=== PATIENT | female | born 1950 | race Caucasian/White ===

== ENCOUNTER 2018-09-26 09:45 | Inpatient (IN) | payer OTHER ==
[2018-09-26] VITALS (11 sets, daily range): BP systolic 125–184; BP diastolic 61–80
[~2018-09-26] VITALS: Ht 170.2 cm; Wt 107.5 kg
[2018-09-26] MEDS ORDERED: IV NORMAL SALINE 1000ML BAG 1,000 ML IV SCH (09:52)
[2018-09-26] MEDS ORDERED: MORPHINE SULFATE 4 MG/ML VIAL. IV ONE (10:00)
[2018-09-26 10:03] LABS: BASO % 1 % (0-3); EOS % 1 % (0-3); HEMATOCRIT 39.9 % (36.0-47.0); HEMOGLOBIN 13.6 g/dL (12.0-15.5); LYMPH # 1.6 x10^3/uL (1.0-4.8); LYMPH % 36 % (24-48); MEAN CORPUSCULAR HEMOGLOBIN 30 pg (25-35); MEAN CORPUSCULAR HGB CONC 34 g/dL (31-37); MEAN CORPUSCULAR VOLUME 89 fL (79-100); MONO # 0.3 x10^3/uL (0.0-1.1); MONO % 7 % (0-9); NEUT # 2.5 x10^3uL (1.8-7.7); NEUT % 56 % (31-73); PLATELET COUNT 168 x10^3/uL (140-400); RED BLOOD COUNT 4.47 x10^6/uL (3.50-5.40); RED CELL DISTRIBUTION WIDTH 15.2 % (11.5-14.5); WHITE BLOOD COUNT 4.4 x10^3/uL (4.0-11.0)
--- NOTE | 2018-09-26 10:05 | PHYS DOC ---
Past Medical History Past Medical History: CAD, COPD, High Cholesterol, Hypertension Additional Past Medical Histor: DVT Past Surgical History: Coronary Bypass Surgery Smoking: Quit Greater Than 1 Year Adult General Chief Complaint Chief Complaint: MECHANICAL FALL HPI HPI Patient is a 68-year-old female who presents to the emergency department via EMS after mechanical fall. She states she was walking down an incline surface, to help her dog, when she lost her balance, and fell to the ground injuring her left knee. She has had a TKA on the left side in the past, in [facility]. She denies any dizziness or lightheadedness preceding the fall. She denies any other injuries or painful areas, denies any headache or head injury, neck pain or back pain, numbness or weakness. Any movement of her left leg and knee worsens her pain. There are no alleviating factors to her symptoms. She was given 200 Micrograms of fentanyl by EMS prior to arrival. Review of Systems Review of Systems Constitutional: Denies fever or chills [] Eyes: Denies change in visual acuity, redness, or eye pain [] HENT: Denies nasal congestion or sore throat [] Respiratory: Denies cough or shortness of breath [] Cardiovascular: The patient denies any shortness of breath, chest pain, palpitations, or orthopnea [] GI: Denies abdominal pain, nausea, vomiting, bloody stools or diarrhea [] : Denies dysuria or hematuria [] Musculoskeletal: Denies back pain or joint pain, except as noted in the history of present illness [] Integument: Denies rash or skin lesions [] Neurologic: Denies headache, focal weakness or sensory changes [] All other systems were reviewed and found to be within normal limits, except as documented in this note. Current Medications Current Medications Current Medications Medications (Trade) Dose Ordered Sig/Danielle Start Time Stop Time Status Last Admin Dose Admin Hydromorphone HCl (Dilaudid) 2 mg STK-MED ONCE 09/26/18 10:33 09/26/18 10:34 DC Morphine Sulfate (Morphine Sulfate) 4 mg 1X ONCE 09/26/18 10:00 09/26/18 10:01 DC 09/26/18 10:03 4 MG Sodium Chloride 1,000 ml @ 100 mls/hr Q10H 09/26/18 09:52 09/26/18 19:51 09/26/18 10:18 100 MLS/HR Allergies Allergies Allergies Coded Allergies Type Severity Reaction Last Updated Verified No Known Drug Allergies 09/26/18 No Physical Exam Physical Exam PHYSICAL EXAM: CONSTITUTIONAL: Well developed, well nourished HEAD: normocephalic, atraumatic EENT: PERRL, EOMI. Conjunctivae normal color, sclerae non-icteric; moist mucous membranes. NECK: Supple, non-tender; no meningismus.There is full, painless range of motion of the cervical spine, without any focal bony midline tenderness to palpation. LUNGS: Lungs CTA, breathing even and unlabored. Normal air movement. HEART: Regular rate and rhythm, no murmur CHEST: No deformity; non-tender ABDOMEN: The abdomen is soft, and non-tender, no masses or bruits. EXTREM: There is tenderness to palpation of the left knee area, mostly superior to the knee joint, in the distal femur area. There is soft tissue swelling present as well. There is some shortening and slight lateral rotation of the distal leg relative to the right. There is no tenderness to palpation of the knee joint itself or distally, to the lower leg, ankle, or foot. There is a strong distal pulse, sensation and motor function is normal. The mid and proximal femur are also nontender, the hip is nontender and the pelvis is nontender. The remainder the extremities are atraumatic, with Normal ROM; no deformity, no calf tenderness. Normal pulses palpable in all extremities. There is no pedal edema. SKIN: No rash; no diaphoresis NEURO: Alert; normal speech and cognition; CN's grossly intact; strength grossly intact without focal deficit. BACK: No CVA TTP. Current Patient Data Vital Signs Vital Signs Date Time Temp Pulse Resp B/P (MAP) Pulse Ox O2 Delivery O2 Flow Rate FiO2 09/26/18 10:49 10 100 Room Air 09/26/18 10:12 60 09/26/18 09:45 98.2 168/72 (104) 98.2 Lab Values Laboratory Tests Test 09/26/18 09:50 White Blood Count 4.4 x10^3/uL (4.0-11.0) Red Blood Count 4.47 x10^6/uL (3.50-5.40) Hemoglobin 13.6 g/dL (12.0-15.5) Hematocrit 39.9 % (36.0-47.0) Mean Corpuscular Volume 89 fL (79-100) Mean Corpuscular Hemoglobin 30 pg (25-35) Mean Corpuscular Hemoglobin Concent 34 g/dL (31-37) Red Cell Distribution Width 15.2 % (11.5-14.5) H Platelet Count 168 x10^3/uL (140-400) Neutrophils (%) (Auto) 56 % (31-73) Lymphocytes (%) (Auto) 36 % (24-48) Monocytes (%) (Auto) 7 % (0-9) Eosinophils (%) (Auto) 1 % (0-3) Basophils (%) (Auto) 1 % (0-3) Neutrophils # (Auto) 2.5 x10^3uL (1.8-7.7) Lymphocytes # (Auto) 1.6 x10^3/uL (1.0-4.8) Monocytes # (Auto) 0.3 x10^3/uL (0.0-1.1) Eosinophils # (Auto) 0.0 x10^3/uL (0.0-0.7) Basophils # (Auto) 0.0 x10^3/uL (0.0-0.2) Prothrombin Time 24.7 SEC (11.7-14.0) H Prothrombin Time INR 2.3 (0.8-1.1) H Sodium Level 144 mmol/L (136-145) Potassium Level 3.4 mmol/L (3.5-5.1) L Chloride Level 104 mmol/L (98-107) Carbon Dioxide Level 29 mmol/L (21-32) Anion Gap 11 (6-14) Blood Urea Nitrogen 21 mg/dL (7-20) H Creatinine 1.2 mg/dL (0.6-1.0) H Estimated GFR (Cockcroft-Gault) 44.8 Glucose Level 134 mg/dL (70-99) H Calcium Level 9.0 mg/dL (8.5-10.1) Laboratory Tests 09/26/18 09:50 Laboratory Tests 09/26/18 09:50 EKG EKG [Normal sinus rhythm with a normal rate, normal axis, normal intervals, there a re no acute ischemic ST/T changes.] Radiology/Procedures Radiology/Procedures PROCEDURE: PORTABLE CHEST 1V EXAM: One view DATE: 09/26/2018 9:52 AM INDICATION: Fall, injury COMPARISON: No Prior FINDINGS/ IMPRESSION: Changes of cardiothoracic surgery are seen. The heart is not enlarged. Mediastinal and hilar contours are normal accounting for portable supine technique. No focal parenchymal airspace opacity. No pleural effusion or pneumothorax. []PROCEDURE: KNEE LEFT 2V EXAM: AP and lateral views of the left femur DATE: 09/26/2018 12:00 AM INDICATION: Fall, injury COMPARISON: No Prior FINDINGS/ IMPRESSION: 1. Changes of left total knee arthroplasty are seen. 2. Comminuted periprosthetic distal femoral fracture is seen with full shaft width lateral and dorsal displacement of the distal principal fragment with approximately 5-6 cm overriding of the principal fragments. Fracture is in apex anterior angulation. Course & Med Decision Making Course & Med Decision Making Pertinent Labs and Imaging studies reviewed. (See chart for details) []11:20 AM: I spoke with Dr. Jorgensen, orthopedics, who will see the patient and plan operative intervention, today if able. The patient will be given FFP for warfarin reversal, will not be given vitamin K as she will likely need posto perative anticoagulation. I also spoke with Dr. Brown, the hospitalist, who will admit the patient. The patient's leg will be stabilized with a splinter knee immobilizer. Dragon Disclaimer Dragon Disclaimer This electronic medical record was generated, in whole or in part, using a voice recognition dictation system. Departure Departure Impression: Primary Impression: Periprosthetic fracture around internal prosthetic knee joint Additional Impression: Anticoagulated on Coumadin Disposition: ADMITTED INPATIENT [facility] Condition: STABLE Problem Qualifiers BINH BROWN MD Sep 26, 2018 10:05
[2018-09-26 10:17] LABS: CREATININE 1.2 mg/dL (0.6-1.0); GFR 44.8; POTASSIUM 3.4 mmol/L (3.5-5.1)
[2018-09-26 10:22] LABS: PROTHROMBIN TIME PATIENT 24.7 SEC (11.7-14.0)
[2018-09-26] MEDS ORDERED: HYDROmorphone 2 MG/ML VIAL ONE (10:33)
[2018-09-26] MEDS ORDERED: HYDROmorphone 2 MG/ML VIAL IV ONE (10:45)
--- NOTE | 2018-09-26 10:58 | RAD ---
EXAM: AP and lateral views of the left femur DATE: 09/26/2018 12:00 AM INDICATION: Fall, injury COMPARISON: No Prior FINDINGS/ IMPRESSION: 1. Changes of left total knee arthroplasty are seen. 2. Comminuted periprosthetic distal femoral fracture is seen with full shaft width lateral and dorsal displacement of the distal principal fragment with approximately 5-6 cm overriding of the principal fragments. Fracture is in apex anterior angulation. Electronically signed by: Canelo Shukla MD (09/26/2018 10:55 AM) [id number]
--- NOTE | 2018-09-26 10:59 | RAD ---
EXAM: One view DATE: 09/26/2018 9:52 AM INDICATION: Fall, injury COMPARISON: No Prior FINDINGS/ IMPRESSION: Changes of cardiothoracic surgery are seen. The heart is not enlarged. Mediastinal and hilar contours are normal accounting for portable supine technique. No focal parenchymal airspace opacity. No pleural effusion or pneumothorax. Electronically signed by: Canelo Shukla MD (09/26/2018 10:56 AM) [id number]
--- NOTE | 2018-09-26 11:25 | PDOC1 ---
History and Physical Date of Admission Date of Admission DATE: 09/26/18 TIME: 11:25 Identification/Chief Complaint Chief Complaint Fall Source Source: Patient History of Present Illness History of Present Illness Ms Sales is a 68-year-old female w/ PMHx CAD s/p CABG 2006, CAS on CPAP, COPD, HLD, HTN, DVT on warfarin who presents to the emergency department via EMS after mechanical fall. She states she was walking down an incline surface, to help her dog, when she lost her balance, and fell to the ground injuring her left knee. She has had a TKA on the left side in the past, in [facility]. She denies any dizziness or lightheadedness preceding the fall. She denies any other injuries or painful areas, denies any headache or head injury, neck pain or back pain, numbness or weakness. Any movement of her left leg and knee worsens her pain. There are no alleviating factors to her symptoms. She was given 200 Micrograms of fentanyl by EMS prior to arrival. In ED found with comminuted periprosthetic distal femoral fracture, orthopedic surgery contacted. Admitted for further care Past Medical History Cardiovascular: CAD, HTN, Hyperlipidemia Pulmonary: COPD GI: No pertinent hx Heme/Onc: No pertinent hx Hepatobiliary: No pertinent hx Psych: No pertinent hx Rheumatologic: No pertinent hx Infectious disease: No pertinent hx ENT: No pertinent hx Renal/: No pertinent hx Endocrine: No pertinent hx Dermatology: No pertinent hx Past Surgical History Past Surgical History: Appendectomy, Cholecystectomy, CABG, Total knee replacement, Tonsillectomy, Hysterectomy Family History Family History: Heart Disease, High Cholestrol, Hypertension Social History Smoke: <1 pack per day ALCOHOL: rare Drugs: None Current Problem List Problem List Problems Medical Problems: (1) Anticoagulated on Coumadin Status: Acute (2) Periprosthetic fracture around internal prosthetic knee joint Status: Acute Current Medications Current Medications Current Medications Morphine Sulfate (Morphine Sulfate) 4 mg 1X ONCE IV Last administered on 09/26/18at 10:03; Start 09/26/18 at 10:00; Stop 09/26/18 at 10:01; Status DC Sodium Chloride 1,000 ml @ 100 mls/hr Q10H IV Last administered on 09/26/18at 10:18; Start 09/26/18 at 09:52; Stop 6/13/19 at 19:51 Hydromorphone HCl (Dilaudid) 1 mg 1X ONCE IV Last administered on 09/26/18at 10:49; Start 09/26/18 at 10:45; Stop 09/26/18 at 10:46; Status DC Hydromorphone HCl (Dilaudid) 2 mg STK-MED ONCE .ROUTE ; Start 09/26/18 at 10:33; Stop 09/26/18 at 10:34; Status DC Allergies Allergies: Coded Allergies: No Known Drug Allergies (Unverified , 09/26/18) ROS General: YES: Fatigue, Malaise; No: Chills, Night Sweats, Appetite, Other PSYCHOLOGICAL ROS: No: Anxiety, Behavioral Disorder, Concentration difficultie, Decreased libido, Depression, Disorientation, Hallucinations, Hostility, Irritablity, Memory difficulties, Mood Swings, Obsessive thoughts, Physical abuse, Sexual abuse, Sleep disturbances, Suicidal ideation, Other Eyes: No Blurry vision, No Decreased vision, No Double vision, No Dry eyes, No Excessive tearing, No Eye Pain, No Itchy Eyes, No Loss of vision, No Photophobia, No Scotomata, No Uses contacts, No Uses glasses, No Other HEENT: No: Heacaches, Visual Changes, Hearing change, Nasal congestion, Nasal d ischarge, Oral lesions, Sinus pain, Sore Throat, Epistaxis, Sneezing, Snoring, Tinnitus, Vertigo, Vocal changes, Other ALLERGY AND IMMUNOLOGY: No: Hives, Insect Bite Sensitivity, Itchy/Watery Eyes, Nasal Congestion, Post Nasal Drip, Seasonal Allergies, Other Hematological and Lymphatic: No: Bleeding Problems, Blood Clots, Blood Transfusions, Brusing, Night Sweats, Pallor, Swollen Lymph Nodes, Other ENDOCRINE: No: Breast Changes, Galactorrhea, Hair Pattern Changes, Hot Flashes, Malaise/lethargy, Mood Swings, Palpitations, Polydipsia/polyuria, Skin Changes, Temperature Intolerance, Unexpected Weight Changes, Other Breast: No New/Changing Breast Lumps, No Nipple changes, No Nipple discharge, No Other Respiratory: No: Cough, Hemoptysis, Orthopnea, Pleuritic Pain, Shortness of wolfgang ath, SOB with excertion, Sputum Changes, Stridor, Tachypnea, Wheezing, Other Cardiovascular: No Chest Pain, No Palpitations, No Orthopnea, No Paroxysmal Noc. Dyspnea, No Edema, No Lt Headedness, No Other Gastrointestinal: No Nausea, No Vomiting, No Abdominal Pain, No Diarrhea, No Constipation, No Melena, No Hematochezia, No Other Genitourinary: No Dysuria, No Frequency, No Incontinence, No Hematuria, No Retention, No Discharge, No Urgency, No Pain, No Flank Pain, No Other, No , No , No , No , No , No , No Musculoskeletal: Yes Gait Disturbance, Yes Joint Pain; No Joint Stiffness, No Joint Swelling, No Muscle Pain, No Muscular Weakness, No Pain In:, No Swelling In:, No Other Neurological: No Behavorial Changes, No Bowel/Bladder ControlChng, No Confusion, No Dizziness, No Gait Disturbance, No Headaches, No Impaired Coord/balance, No Memory Loss, No Numbness/Tingling, No Seizures, No Speech Problems, No Tremors, No Visual Changes, No Weakness, No Other Skin: No Dry Skin, No Eczema, No Hair Changes, No Lumps, No Mole Changes, No Mottling, No Nail Changes, No Pruritus, No Rash, No Skin Lesion Changes, No Other, No Acne Vitals Vitals Vital Signs Date Time Temp Pulse Resp B/P (MAP) Pulse Ox O2 Delivery O2 Flow Rate FiO2 09/26/18 10:49 10 100 Room Air 09/26/18 10:12 60 09/26/18 09:45 98.2 168/72 (104) 98.2 Labs Labs Laboratory Tests Test 09/26/18 09:50 White Blood Count 4.4 x10^3/uL (4.0-11.0) Red Blood Count 4.47 x10^6/uL (3.50-5.40) Hemoglobin 13.6 g/dL (12.0-15.5) Hematocrit 39.9 % (36.0-47.0) Mean Corpuscular Volume 89 fL (79-100) Mean Corpuscular Hemoglobin 30 pg (25-35) Mean Corpuscular Hemoglobin Concent 34 g/dL (31-37) Red Cell Distribution Width 15.2 % (11.5-14.5) Platelet Count 168 x10^3/uL (140-400) Neutrophils (%) (Auto) 56 % (31-73) Lymphocytes (%) (Auto) 36 % (24-48) Monocytes (%) (Auto) 7 % (0-9) Eosinophils (%) (Auto) 1 % (0-3) Basophils (%) (Auto) 1 % (0-3) Neutrophils # (Auto) 2.5 x10^3uL (1.8-7.7) Lymphocytes # (Auto) 1.6 x10^3/uL (1.0-4.8) Monocytes # (Auto) 0.3 x10^3/uL (0.0-1.1) Eosinophils # (Auto) 0.0 x10^3/uL (0.0-0.7) Basophils # (Auto) 0.0 x10^3/uL (0.0-0.2) Prothrombin Time 24.7 SEC (11.7-14.0) Prothromb Time International Ratio 2.3 (0.8-1.1) Sodium Level 144 mmol/L (136-145) Potassium Level 3.4 mmol/L (3.5-5.1) Chloride Level 104 mmol/L (98-107) Carbon Dioxide Level 29 mmol/L (21-32) Anion Gap 11 (6-14) Blood Urea Nitrogen 21 mg/dL (7-20) Creatinine 1.2 mg/dL (0.6-1.0) Estimated GFR (Cockcroft-Gault) 44.8 Glucose Level 134 mg/dL (70-99) Calcium Level 9.0 mg/dL (8.5-10.1) Laboratory Tests Test 09/26/18 09:50 White Blood Count 4.4 x10^3/uL (4.0-11.0) Red Blood Count 4.47 x10^6/uL (3.50-5.40) Hemoglobin 13.6 g/dL (12.0-15.5) Hematocrit 39.9 % (36.0-47.0) Mean Corpuscular Volume 89 fL (79-100) Mean Corpuscular Hemoglobin 30 pg (25-35) Mean Corpuscular Hemoglobin Concent 34 g/dL (31-37) Red Cell Distribution Width 15.2 % (11.5-14.5) Platelet Count 168 x10^3/uL (140-400) Neutrophils (%) (Auto) 56 % (31-73) Lymphocytes (%) (Auto) 36 % (24-48) Monocytes (%) (Auto) 7 % (0-9) Eosinophils (%) (Auto) 1 % (0-3) Basophils (%) (Auto) 1 % (0-3) Neutrophils # (Auto) 2.5 x10^3uL (1.8-7.7) Lymphocytes # (Auto) 1.6 x10^3/uL (1.0-4.8) Monocytes # (Auto) 0.3 x10^3/uL (0.0-1.1) Eosinophils # (Auto) 0.0 x10^3/uL (0.0-0.7) Basophils # (Auto) 0.0 x10^3/uL (0.0-0.2) Prothrombin Time 24.7 SEC (11.7-14.0) Prothromb Time International Ratio 2.3 (0.8-1.1) Sodium Level 144 mmol/L (136-145) Potassium Level 3.4 mmol/L (3.5-5.1) Chloride Level 104 mmol/L (98-107) Carbon Dioxide Level 29 mmol/L (21-32) Anion Gap 11 (6-14) Blood Urea Nitrogen 21 mg/dL (7-20) Creatinine 1.2 mg/dL (0.6-1.0) Estimated GFR (Cockcroft-Gault) 44.8 Glucose Level 134 mg/dL (70-99) Calcium Level 9.0 mg/dL (8.5-10.1) Images Images CXR - s/p CABG Left knee XR 1. Changes of left total knee arthroplasty are seen. 2. Comminuted periprosthetic distal femoral fracture is seen with full shaft width lateral and dorsal displacement of the distal principal fragment with approximately 5-6 cm overriding of the principal fragments. Fracture is in apex anterior angulation VTE Prophylaxis Ordered VTE Prophylaxis Devices: Yes VTE Pharmacological Prophylaxi: Yes Assessment/Plan Assessment/Plan A/P: Left leg fracture - comminuted. Pain control. To OR today CAD s/p CABG 2006 - will cont home meds. Had recent stress test that was negative. CAS on CPAP - will bring home CPAP COPD - Will place on nebulizers HLD - cont statin HTN - cont meds after surgery DVT on warfarin - FFP to reverse INR, will place back on post op FEN - NPO PPX - therapeutic INR on warfarin FULL CODE Inpatient for left leg fracture No further testing necessary prior to surgery WILFREDO ALVAREZ MD Sep 26, 2018 11:25
[2018-09-26] MEDS ORDERED: IV RINGERS,LACTATED 1000ML 1,000 ML IV SCH (11:39)
[2018-09-26] MEDS ORDERED: MORPHINE SULFATE 2 MG/ML VIAL. IV PRN ×2 (11:45→22:30)
[2018-09-26] MEDS ORDERED: ONDANSETRON PF 4 MG/2 ML VIAL. IV PRN ×2 (11:45→22:30)
[2018-09-26] MEDS ORDERED: fentaNYL PF VIAL 100 MCG/2 ML VIAL IV PRN ×2 (11:45→22:30)
[2018-09-26] MEDS ORDERED: PROCHLORPERAZINE 10 MG/2 ML VIAL. IV PRN (11:45)
[2018-09-26] MEDS ORDERED: HYDROmorphone 2 MG/ML VIAL IV PRN (11:45)
--- NOTE | 2018-09-26 14:09 | EKG ---
[facility] [address] [place] [address] Test Date: 2018-09-26 Test Time: 10:27:07 Pat Name: PEDRITO MARTINEZ Department: Room: Gender: F Sample Paster: : 1950 Requested By: BINH BROWN Order Number: [id number] Reading MD: Measurements Intervals Collins Rate: 55 P: 43 MO: 152 QRS: 59 QRSD: 90 T: 66 QT: 436 QTc: 419 Interpretive Statements SINUS RHYTHM NO SPECIFIC ECG ABNORMALITIES RI6.01 Unconfirmed report No previous ECG available for comparison
[2018-09-26] MEDS ORDERED: fentaNYL PF VIAL 100 MCG/2 ML VIAL IM ONE (14:15)
[2018-09-26] MEDS ORDERED: fentaNYL PF VIAL 100 MCG/2 ML VIAL IV ONE (14:45)
[2018-09-26] MEDS ORDERED: LIDOCAINE 2% PF 5 ML VIAL. ONE (14:58)
[2018-09-26] MEDS ORDERED: PROPOFOL 20 ML IV ONE (14:58)
[2018-09-26] MEDS ORDERED: ROCURONIUM 50 MG/5 ML VIAL. ONE (14:59)
[2018-09-26] MEDS ORDERED: fentaNYL PF VIAL 100 MCG/2 ML VIAL ONE ×2 (15:14→15:51)
[2018-09-26 15:15] LABS: PROTHROMBIN TIME PATIENT 21.5 SEC (11.7-14.0)
[2018-09-26] MEDS: fentaNYL PF VIAL 100 MCG/2 ML VIAL IV PRN ×3 (15:15→15:31)
[2018-09-26] MEDS ORDERED: ceFAZolin 1GM IVPB FOR OMNI 100 ML IV ONE (15:46)
[2018-09-26] MEDS ORDERED: DICY20TA3 PO (15:55)
[2018-09-26] MEDS ORDERED: PANT20TA2 PO (15:55)
[2018-09-26] MEDS ORDERED: LEVO112T4 PO (15:55)
[2018-09-26] MEDS ORDERED: TRAZ-86 PO (15:55)
[2018-09-26] MEDS ORDERED: CETI10TA16 PO (15:55)
[2018-09-26] MEDS ORDERED: WARF-31 PO (15:55)
[2018-09-26] MEDS ORDERED: WARF2.5T71 PO (15:55)
[2018-09-26] MEDS ORDERED: ASPI-612 PO (15:55)
[2018-09-26] MEDS ORDERED: OMEG1CAP38 PO (15:55)
[2018-09-26] MEDS ORDERED: POTA10TA12 PO (15:55)
[2018-09-26] MEDS ORDERED: ATOR10TA60 PO (15:55)
[2018-09-26] MEDS ORDERED: FURO40TA4 PO (15:55)
[2018-09-26] MEDS ORDERED: MONT10TA49 PO (15:55)
[2018-09-26] MEDS ORDERED: DEXAMETHASONE SOD PHOS 4 MG/ML VIAL ONE (16:02)
[2018-09-26] MEDS ORDERED: SEVOFLURANE > 120 MINUTES. IH ONE (16:02)
[2018-09-26] MEDS ORDERED: DESFLURANE > 120 MINUTES IH ONE (16:23)
[2018-09-26] MEDS ORDERED: ONDANSETRON PF 4 MG/2 ML VIAL. ONE (16:23)
[2018-09-26] MEDS ORDERED: PHENYLEPHRINE in 0.9% NACL PF 1 MG/10 ML SYRINGE. IV ONE (17:47)
[2018-09-26] MEDS ORDERED: BUPIVACAINE MPF 0.5% 30 ML VIAL. ONE (18:20)
[2018-09-26] MEDS ORDERED: PROCHLORPERAZINE 10 MG/2 ML VIAL. ONE (18:26)
--- NOTE | 2018-09-26 21:40 | CONS ---
DATE OF CONSULTATION: 09/26/2018 REQUESTING PHYSICIAN: Dr. Cj Riley. REASON FOR CONSULTATION: Left periprosthetic distal femur fracture. HISTORY OF PRESENT ILLNESS: The patient is a 68-year-old female that lost her balance, walking down an incline to get her dog, fell and felt her left knee crack and give way. She was unable to bear weight on it following that. She has a total knee arthroplasty prior that was done in [place], [place] and she recently moved to the area. She indicates no syncopal episode prior to the fall and no previous knee pain or other issues prior as well. PAST MEDICAL HISTORY: Significant for coronary artery disease, hypertension, hyperlipidemia, history of COPD that is well controlled. She had previous history of DVT for which she remains on warfarin. PAST SURGICAL HISTORY: Coronary artery bypass graft in 2006, asymptomatic since a total knee arthroplasty on the left; tonsillectomy; hysterectomy; appendectomy; cholecystectomy. FAMILY HISTORY: Significant for heart disease, hypertension, hypercholesterolemia. SOCIAL HISTORY: She is a less than 1 pack per day smoker, rare alcohol use, denies drug use. MEDICATIONS: List is reviewed. ALLERGIES: She has no known drug allergies. REVIEW OF SYSTEMS: No recent chest pain, shortness of breath, fever, chills, change in bowel or bladder habits, radiating pain, focal weakness, numbness or tingling. PHYSICAL EXAMINATION: VITAL SIGNS: Temperature is afebrile, blood pressure 168/72, pulse 60, respirations 12, 100% saturation on room air. HEENT: Atraumatic, normocephalic. EXTREMITIES: Examination of lower extremities reveals obvious deformity to the left distal femur. Skin overlying intact. She is very tender on palpation. She has well-healed incision from previous total knee arthroplasty on the left. Normal examination of the contralateral hip, knee and bilateral ankles with overall intact motor function, distal pulses, sensation, reflexes, skin in both lower extremities throughout. IMAGING: X-rays show a displaced oblique distal femoral shaft fracture above a well-fixated total knee arthroplasty. Her INR on laboratory examination was 2.2. IMPRESSION: Left distal femur periprosthetic fracture. TREATMENT PLAN: I went over with the patient and her daughter the rationale for fixation as opposed to nonoperative treatment of this injury because of her immobility related issues with nonoperative treatment. We talked about the proposed plate and screw fixation, which would generally allow her to do some gentle range of motion and keep her mobility of the knee and do some leg lifts and keep active without weightbearing until adequate healing would allow progressive weightbearing. There is a possible risk of infection, nonhealing, nerve or blood vessel damage, medical or other anesthetic complications among others. All her questions were answered. She wishes to proceed with surgical evaluation and treatment, which will occur when the operating room is available today. ALEC TYSON MD DR: SKYE/margaret JOB#: [id number] / [id number]
--- NOTE | 2018-09-26 21:48 | PDOC4 ---
Operative Note Operative Note Date of surgery: 09/26/2018 Preoperative diagnosis: Comminuted displaced periprosthetic distal femur fracture Postoperative diagnosis: Same Operative procedure: Operative reduction internal fixation with locking plate screw and cable fixation periprosthetic left distal femur fracture Surgeon: Joslyn Assist: Inocencia Anesthesia: Gen. Estimated blood loss: 400 mL Complications: None Operative indications: Please see my dictated operative consultation of today for detail the operative indications and note my discussion with the patient and her family of immobility related and alignment concerns with nonoperative treatment and possibility of operative complications including the possibility of delayed or nonhealing infection nerve or blood vessel damage medical or other anesthetic complications among others all her questions were answered she wishes to proceed with surgical evaluation and treatment. Operative text: Patient was identified procedure verified patient placed in the supine position on the operating table. After adequate amounts of general anesthesia were administered the left lower extremity was prepped and draped in standard sterile fashion. After timeout was performed patient procedure identified and verified and incision was made over the lateral aspect of the distal femur dissection carried out through the iliotibial band which was split and subperiosteal dissection carried out and the comminuted fracture was identified and a Miryam NCB polyaxial periprosthetic distal femur locking plate was selected and placed under multiple fluoroscopic views with a reduction clamp. First a shaft screw was placed for initial fixation. Due to the significant comminution initial cable fixation was used to stabilize the intermediate fracture fragments above the metaphyseal area. Metaphyseal fixation was carried out with cancellous locking screws under fluoroscopic guidance. Additional shaft and cable fixation was carried out intermediately to complete the stabilization. Excellent alignment was noted from a lateral view and some compression of the comminuted fracture fragments just above the metaphyseal area were noted but overall acceptable alignment on anterior posterior view. She had full range of motion and normal stability of the knee arthroplasty and normal patellofemoral tracking on completion. Thorough irrigation was carried out normal saline solution fascia was closed with #1 strata fix suture in a running fashion subcutaneous closure with buried Vicryl and skin closure with neal sterile soft dressings were applied patient was returned recovery room in stable condition having tolerated procedure well. Inocencia minaya was present for the procedure and assisted in the prepping draping retraction and skin closure ALEC TYSON MD Sep 26, 2018 21:48
[2018-09-26] MEDS: BUDESONIDE 0.5 MG/2 ML NEBU. NEB SCH (22:10)
[2018-09-26] MEDS: IPRATRPIUM/ALBUTEROL 0.5/2.5MG 3 ML NEBU. NEB SCH (22:10)
[2018-09-26] MEDS ORDERED: POLYETHYLENE GLYCOL 3350 17 GM PACKET. PO PRN (22:30)
[2018-09-26] MEDS ORDERED: HYDROcodone/APAP 7.5/325MG 1 TAB TABLET PO PRN (22:30)
[2018-09-26] MEDS ORDERED: DEXTROSE 50% 25 GM / 50ML DISP.SYRIN. IV PRN (22:30)
[2018-09-27 03:00] VITALS: BP 98/78
[2018-09-27] MEDS ORDERED: MAGNESIUM HYDROXIDE 2,400 MG/30 ML ORAL.SUSP. PO PRN (06:00)
[2018-09-27 07:00] VITALS: BP 117/51
[2018-09-27] MEDS: IPRATRPIUM/ALBUTEROL 0.5/2.5MG 3 ML NEBU. NEB SCH ×4 (07:19→18:34)
[2018-09-27] MEDS: BUDESONIDE 0.5 MG/2 ML NEBU. NEB SCH ×2 (07:19→18:34)
[2018-09-27] MEDS: SENNOSIDES/DOCUSATE 8.6/50MG TABLET. PO SCH (09:21)
[2018-09-27] MEDS: MORPHINE SULFATE 4 MG/ML VIAL. IV PRN ×4 (09:21→22:40)
--- NOTE | 2018-09-27 10:20 | NUR ---
SW following for discharge planning. Discussed with RN, pt is from home, PT/OT ordered. SW will continue to follow for recommendations.
[2018-09-27] MEDS: HYDROcodone/APAP 7.5/325MG 1 TAB TABLET PO PRN ×3 (10:24→18:29)
[2018-09-27 10:29] LABS: PROTHROMBIN TIME PATIENT 24.8 SEC (11.7-14.0)
--- NOTE | 2018-09-27 10:56 | PDOC ---
[facility] PROGRESS NOTE Chief Complaint Chief Complaint Fall with distal femur fracture is post ORIF (Operative reduction internal fixation with locking plate screw and cable fixation periprosthetic left distal femur fracture) Cardiovascular: CAD, HTN, Hyperlipidemia Pulmonary: COPD History of Present Illness History of Present Illness Patient seen and examined Family present Spoke with case management and her nurse Vitals Vitals Vital Signs Date Time Temp Pulse Resp B/P (MAP) Pulse Ox O2 Delivery O2 Flow Rate FiO2 09/27/18 10:24 Room Air 09/27/18 07:19 98 2.0 09/27/18 07:00 97.9 85 18 117/51 (73) 97.9 Physical Exam General: Alert, Oriented X3, Cooperative Heart: Regular rate, Normal S1, Normal S2 Lungs: Clear Abdomen: Normal bowel sounds, Soft Extremities: No clubbing Skin: No rashes, No breakdown Labs Labs: Laboratory Tests Test 09/26/18 14:40 09/27/18 09:32 Prothrombin Time 21.5 SEC (11.7-14.0) 24.8 SEC (11.7-14.0) Prothromb Time International Ratio 1.9 (0.8-1.1) 2.3 (0.8-1.1) Assessment and Plan Assessmemt and Plan Problems Medical Problems: (1) Anticoagulated on Coumadin Status: Acute (2) 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 Labs Laboratory Tests Test 09/26/18 09:50 09/26/18 14:40 09/27/18 09:32 White Blood Count 4.4 x10^3/uL (4.0-11.0) Red Blood Count 4.47 x10^6/uL (3.50-5.40) Hemoglobin 13.6 g/dL (12.0-15.5) Hematocrit 39.9 % (36.0-47.0) Mean Corpuscular Volume 89 fL (79-100) Mean Corpuscular Hemoglobin 30 pg (25-35) Mean Corpuscular Hemoglobin Concent 34 g/dL (31-37) Red Cell Distribution Width 15.2 % (11.5-14.5) Platelet Count 168 x10^3/uL (140-400) Neutrophils (%) (Auto) 56 % (31-73) Lymphocytes (%) (Auto) 36 % (24-48) Monocytes (%) (Auto) 7 % (0-9) Eosinophils (%) (Auto) 1 % (0-3) Basophils (%) (Auto) 1 % (0-3) Neutrophils # (Auto) 2.5 x10^3uL (1.8-7.7) Lymphocytes # (Auto) 1.6 x10^3/uL (1.0-4.8) Monocytes # (Auto) 0.3 x10^3/uL (0.0-1.1) Eosinophils # (Auto) 0.0 x10^3/uL (0.0-0.7) Basophils # (Auto) 0.0 x10^3/uL (0.0-0.2) Prothrombin Time 24.7 SEC (11.7-14.0) 21.5 SEC (11.7-14.0) 24.8 SEC (11.7-14.0) Prothromb Time International Ratio 2.3 (0.8-1.1) 1.9 (0.8-1.1) 2.3 (0.8-1.1) Sodium Level 144 mmol/L (136-145) Potassium Level 3.4 mmol/L (3.5-5.1) Chloride Level 104 mmol/L (98-107) Carbon Dioxide Level 29 mmol/L (21-32) Anion Gap 11 (6-14) Blood Urea Nitrogen 21 mg/dL (7-20) Creatinine 1.2 mg/dL (0.6-1.0) Estimated GFR (Cockcroft-Gault) 44.8 Glucose Level 134 mg/dL (70-99) Calcium Level 9.0 mg/dL (8.5-10.1) Laboratory Tests Test 09/26/18 14:40 09/27/18 09:32 Prothrombin Time 21.5 SEC (11.7-14.0) 24.8 SEC (11.7-14.0) Prothromb Time International Ratio 1.9 (0.8-1.1) 2.3 (0.8-1.1) Medications Current Medications Morphine Sulfate (Morphine Sulfate) 4 mg 1X ONCE IV Last administered on 09/26/18at 10:03; Start 09/26/18 at 10:00; Stop 09/26/18 at 10:01; Status DC Sodium Chloride 1,000 ml @ 100 mls/hr Q10H IV Last administered on 09/26/18at 10:18; Start 09/26/18 at 09:52; Stop 09/26/18 at 19:51; Status DC Hydromorphone HCl (Dilaudid) 1 mg 1X ONCE IV Last administered on 09/26/18at 10:49; Start 09/26/18 at 10:45; Stop 09/26/18 at 10:46; Status DC Hydromorphone HCl (Dilaudid) 2 mg STK-MED ONCE .ROUTE ; Start 09/26/18 at 10:33; Stop 09/26/18 at 10:34; Status DC Ondansetron HCl (Zofran) 4 mg PRN Q6HRS PRN IV NAUSEA/VOMITING; Start 09/26/18 at 11:45; Stop 09/27/18 at 11:44 Fentanyl Citrate (Fentanyl 2ml Vial) 25 mcg PRN Q5MIN PRN IV MILD PAIN 1-3 Last administered on 09/26/18at 15:31; Start 09/26/18 at 11:45; Stop 09/27/18 at 11:44 Fentanyl Citrate (Fentanyl 2ml Vial) 50 mcg PRN Q5MIN PRN IV MODERATE TO SEVERE PAIN; Start 09/26/18 at 11:45; Stop 09/27/18 at 11:44 Morphine Sulfate (Morphine Sulfate) 1 mg PRN Q10MIN PRN IV SEVERE PAIN 7-10; Start 09/26/18 at 11:45; Stop 09/27/18 at 11:44 Ringer's Solution 1,000 ml @ 30 mls/hr Q24H IV Last administered on 09/26/18at 19:51; Start 09/26/18 at 11:39; Stop 09/26/18 at 23:38; Status DC Hydromorphone HCl (Dilaudid) 0.5 mg PRN Q10MIN PRN IV SEV PAIN, Second choice; Start 09/26/18 at 11:45; Stop 09/27/18 at 11:44 Prochlorperazine Edisylate (Compazine) 5 mg PACU PRN PRN IV NAUSEA, MRX1 Last administered on 09/26/18at 18:28; Start 09/26/18 at 11:45; Stop 09/27/18 at 11:44 Fentanyl Citrate (Fentanyl 2ml Vial) 50 mcg 1X ONCE IM ; Start 09/26/18 at 14:15; Stop 09/26/18 at 14:51; Status DC Albuterol/ Ipratropium (Duoneb) 3 ml RTQID NEB Last administered on 09/27/18at 07:19; Start 09/26/18 at 16:00 Budesonide (Pulmicort) 0.5 mg RTBID NEB Last administered on 09/27/18at 07:19; Start 09/26/18 at 20:00 Fentanyl Citrate (Fentanyl 2ml Vial) 50 mcg 1X ONCE IV Last administered on 09/26/18at 14:40; Start 09/26/18 at 14:45; Stop 09/26/18 at 14:52; Status DC Propofol 20 ml @ As Directed STK-MED ONCE IV ; Start 09/26/18 at 14:58; Stop 09/26/18 at 14:59; Status DC Lidocaine HCl (Lidocaine Pf 2% Vial) 5 ml STK-MED ONCE .ROUTE ; Start 09/26/18 at 14:58; Stop 09/26/18 at 14:59; Status DC Rocuronium [place] (Zemuron) 50 mg STK-MED ONCE .ROUTE ; Start 09/26/18 at 14:59; Stop 09/26/18 at 15:00; Status DC Fentanyl Citrate (Fentanyl 2ml Vial) 100 mcg STK-MED ONCE .ROUTE ; Start 09/26/18 at 15:14; Stop 09/26/18 at 15:15; Status DC Cefazolin Sodium 100 ml @ As Directed STK-MED ONCE IV ; Start 09/26/18 at 15:46; Stop 09/26/18 at 15:47; Status DC Fentanyl Citrate (Fentanyl 2ml Vial) 100 mcg STK-MED ONCE .ROUTE ; Start 09/26/18 at 15:51; Stop 09/26/18 at 15:52; Status DC Dexamethasone Sodium Phosphate (Decadron) 4 mg STK-MED ONCE .ROUTE ; Start 09/26/18 at 16:02; Stop 09/26/18 at 16:03; Status DC Sevoflurane (Ultane) 90 ml STK-MED ONCE IH ; Start 09/26/18 at 16:02; Stop 09/26/18 at 16:03; Status DC Ondansetron HCl (Zofran) 4 mg STK-MED ONCE .ROUTE ; Start 09/26/18 at 16:23; Stop 09/26/18 at 16:24; Status DC Desflurane (Suprane) 90 ml STK-MED ONCE IH ; Start 09/26/18 at 16:23; Stop 09/26/18 at 16:24; Status DC Phenylephrine HCl (PHENYLEPHRINE in 0.9% NACL PF) 1 mg STK-MED ONCE IV ; Start 09/26/18 at 17:47; Stop 09/26/18 at 17:48; Status DC Bupivacaine HCl (Sensorcaine Mpf 0.5%) 30 ml STK-MED ONCE .ROUTE ; Start 09/26/18 at 18:20; Stop 09/26/18 at 18:21; Status DC Prochlorperazine Edisylate (Compazine) 10 mg STK-MED ONCE .ROUTE ; Start 09/26/18 at 18:26; Stop 09/26/18 at 18:27; Status DC Cefazolin Sodium 50 ml @ 100 mls/hr 1X STAT IV ; Start 09/26/18 at 20:29; Stop 09/26/18 at 20:58; Status UNV Cefazolin Sodium 50 ml @ 100 mls/hr 1X ONCE IV Last administered on 09/26/18at 15:51; Start 09/26/18 at 15:49; Stop 09/26/18 at 21:09; Status DC Cefazolin Sodium 50 ml @ 100 mls/hr 1X STAT IV Last administered on 09/26/18at 15:51; Start 09/26/18 at 15:50; Stop 09/26/18 at 20:49; Status DC Oxycodone HCl (Roxicodone) 5 mg PRN Q3HRS PRN PO PAIN; Start 09/26/18 at 22:30 Morphine Sulfate (Morphine Sulfate) 2 mg PRN Q1HR PRN IV PAIN; Start 09/26/18 at 22:30 Fentanyl Citrate (Fentanyl 2ml Vial) 25 mcg PRN Q1HR PRN IV PAIN; Start 09/26/18 at 22:30 Senna/Docusate Sodium (Senna Plus) 1 tab DAILY PO Last administered on 09/27/18at 09:21; Start 09/27/18 at 09:00 Polyethylene Glycol (miraLAX PACKET) 17 gm PRN DAILY PRN PO CONSTIPATION; Start 09/26/18 at 22:30 Ondansetron HCl (Zofran) 4 mg PRN Q4HRS PRN IV NAUSEA/VOMITING; Start 09/26/18 at 22:30 Warfarin Sodium (Coumadin Per Pharmacy) 1 each PRN DAILY PRN [facility] SEE COMMENTS; Start 09/27/18 at 22:30 Magnesium Hydroxide (Milk Of Magnesia) 2,400 mg 1X PRN PRN PO CONSTIPATION; Start 09/27/18 at 06:00; Stop 09/28/18 at 05:59 Bisacodyl (Dulcolax Supp) 10 mg 1X PRN PRN [place] CONSTIPATION; Start 09/27/18 at 16:00; Stop 09/28/18 at 15:59 Acetaminophen/ Hydrocodone Bitart (Lortab 7.5/325) 1 tab PRN Q4HRS PRN PO PAIN; Start 09/26/18 at 22:30 Morphine Sulfate (Morphine Sulfate) 4 mg PRN Q2HR PRN IV PAIN Last administered on 09/27/18at 09:21; Start 09/26/18 at 22:30 Acetaminophen/ Hydrocodone Bitart (Lortab 7.5/325) 2 tab PRN Q4HRS PRN PO PAIN Last administered on 09/27/18at 10:24; Start 09/26/18 at 22:30 Dextrose (Dextrose 50%-Water Syringe) 12.5 gm PRN Q15MIN PRN IV SEE COMMENTS; Start 09/26/18 at 22:30 Cefazolin Sodium/ Dextrose 50 ml @ 100 mls/hr Q6H IV Last administered on 09/27/18at 06:00; Start 09/26/18 at 23:00; Stop 09/27/18 at 11:29 Active Scripts Active Reported Protonix (Pantoprazole Sodium) 20 Mg Tablet.dr 40 Mg PO DAILY Cetirizine Hcl 10 Mg Tablet 10 Mg PO DAILY Levothyroxine Sodium 112 Mcg Tablet 1 Tab PO DAILY Singulair Tablet (Montelukast Sodium) 10 Mg Tablet 10 Mg PO HS Furosemide 40 Mg Tablet 1 Tab PO QODAY Potassium Chloride 10 Meq Tab.sr.24h 10 Meq PO QODAY Warfarin Sodium 5 Mg Tablet 5 Mg PO DAILY Warfarin Sodium 2.5 Mg Tablet 2.5 Mg PO DAILY [place] 3 Fish Oil Softgel ([place]-3 Fatty Acids/Fish Oil) 1 Each Capsule. 1 Each PO DAILY Aspirin Ec (Aspirin) 81 Mg Tablet. 1 Tab PO DAILY Atorvastatin Calcium 10 Mg Tablet 1 Tab PO DAILY Trazodone Hcl 100 Mg Tablet 100 Mg PO HS Dicyclomine Hcl 20 Mg Tablet 1 Tab PO BID Vitals/I & O Vital Sign - Last 24 Hours 09/26/18 09/26/18 09/26/18 09/26/18 11:00 11:30 12:00 12:30 Pulse 58 54 62 68 Resp 12 24 8 10 B/P (MAP) 168/74 (105) 155/72 (99) 148/65 (92) 148/68 (94) Pulse Ox 95 100 91 97 O2 Delivery Room Air Room Air Room Air Room Air 09/26/18 09/26/18 09/26/18 09/26/18 13:00 13:50 14:40 14:55 Temp 98.2 98.2 Pulse 64 59 Resp 11 23 B/P (MAP) 150/65 (93) 163/70 Pulse Ox 97 98 O2 Delivery Room Air Room Air Room Air Room Air 09/26/18 09/26/18 09/26/18 09/26/18 15:14 15:15 15:19 15:23 Temp 97.6 97.0 97.6 97.0 Pulse 59 63 Resp 25 17 22 25 B/P (MAP) 150/67 150/67 Pulse Ox 99 99 O2 Delivery Room Air Room Air 09/26/18 09/26/18 09/26/18 09/26/18 15:31 18:15 18:15 18:30 Temp 97.5 97.0 97.5 97.0 Pulse 82 82 Resp 14 18 28 B/P (MAP) 188/57 158/57 Pulse Ox 99 99 93 O2 Delivery Room Air Room Air Room Air Room Air 6/13/19 6/13/19 6/13/19 6/13/19 18:45 19:00 19:00 19:15 Temp 97.0 98.7 98.3 98.3 97.0 98.7 98.3 98.3 Pulse 82 86 80 79 Resp 16 18 17 17 B/P (MAP) 160/58 125/80 (95) 147/58 145/59 Pulse Ox 90 94 98 97 O2 Delivery Room Air Room Air Nasal Cannula Nasal Cannula O2 Flow Rate 3 3 09/26/18 09/26/18 09/26/18 09/26/18 19:30 20:00 20:00 20:15 Temp 98.3 98.3 Pulse 79 84 69 Resp 20 B/P (MAP) 152/59 125/68 (87) 137/62 (87) Pulse Ox 98 98 99 O2 Delivery Nasal Cannula Room Air Room Air Room Air O2 Flow Rate 3 09/26/18 09/26/18 09/26/18 09/26/18 20:30 20:45 21:00 21:30 Pulse 72 67 68 72 B/P (MAP) 148/75 (99) 162/63 (96) 164/61 (95) 174/70 (104) Pulse Ox 99 100 100 90 O2 Delivery Room Air Room Air Room Air Room Air 09/26/18 09/26/18 09/26/18 09/27/18 22:00 22:13 23:00 03:00 Temp 98.9 97.6 98.9 97.6 Pulse 69 75 74 Resp 18 18 B/P (MAP) 169/68 (101) 184/70 (108) 98/78 (85) Pulse Ox 95 96 96 94 O2 Delivery Room Air Nasal Cannula Room Air Room Air O2 Flow Rate 2.0 09/27/18 09/27/18 09/27/18 09/27/18 07:00 07:19 09:21 09:51 Temp 97.9 97.9 Pulse 85 Resp 18 B/P (MAP) 117/51 (73) Pulse Ox 95 98 O2 Delivery Room Air Nasal Cannula Room Air Room Air O2 Flow Rate 2.0 09/27/18 10:24 O2 Delivery Room Air Intake and Output 09/26/18 09/26/18 09/27/18 14:59 22:59 06:59 Intake Total 305 ml 1709 ml 740 ml Output Total 800 ml 750 ml Balance 305 ml 909 ml -10 ml CASTLE,NIAL K III DO Sep 27, 2018 10:56
[2018-09-27 11:00] VITALS: BP 133/55
[2018-09-27 15:00] VITALS: BP 117/49
[2018-09-27] MEDS ORDERED: BISACODYL 10 MG SUPP.RECT. PR PRN (16:00)
[2018-09-27] MEDS ORDERED: WARFARIN 2.5 MG TABLET. PO ONE (16:00)
[2018-09-27 19:00] VITALS: BP 119/48
[2018-09-27 23:00] VITALS: BP 104/42
[2018-09-28 03:00] VITALS: BP 129/43
[2018-09-28] MEDS: HYDROcodone/APAP 7.5/325MG 1 TAB TABLET PO PRN ×4 (04:02→20:04)
[2018-09-28 05:32] LABS: HEMATOCRIT 25.5 % (36.0-47.0)
[2018-09-28 05:40] LABS: HEMOGLOBIN 8.7 g/dL (12.0-15.5)
[2018-09-28 05:41] LABS: PROTHROMBIN TIME PATIENT 30.6 SEC (11.7-14.0)
[2018-09-28 07:00] VITALS: BP 154/62
[2018-09-28] MEDS: MORPHINE SULFATE 4 MG/ML VIAL. IV PRN ×2 (07:35→22:36)
--- NOTE | 2018-09-28 08:13 | PDOC ---
PROGRESS NOTES Chief Complaint Chief Complaint A/P: Left leg fracture - comminuted. Pain control. postop CAD s/p CABG 2006 - will cont home meds. Had recent stress test that was negative. CAS on CPAP - will bring home CPAP COPD - cont on nebulizers HLD - cont statin HTN - cont meds after surgery DVT on warfarin - FFP was given to reverse INR, will place back on post op FEN - Cardiac PPX - therapeutic INR on warfarin FULL CODE Inpatient for left leg fracture History of Present Illness History of Present Illness Ms Sales is a 68-year-old female w/ PMHx CAD s/p CABG 2006, CAS on CPAP, COPD, HLD, HTN, DVT on warfarin who presented to the emergency department via EMS after mechanical fall. She stated she was walking down an incline surface, to help her dog, when she lost her balance, and fell to the ground injuring her left knee. She has had a TKA on the left side in the past, in [facility]. She denied any dizziness or lightheadedness preceding the fall. She denied any other injuries or painful areas, denied any headache or head injury, neck pain or back pain, numbness or weakness. Any movement of her left leg and knee worsened her pain Day #2 s/p ORIF with locking plate screw and cable fixation periprosthetic left distal femur fracture. Still having some pain today No BM yet. Vitals Vitals Vital Signs Date Time Temp Pulse Resp B/P (MAP) Pulse Ox O2 Delivery O2 Flow Rate FiO2 09/28/18 07:35 Room Air 09/28/18 05:02 20 09/28/18 03:00 98.6 71 129/43 (71) 97 98.6 09/27/18 15:26 2.0 Physical Exam General: Alert, Oriented X3, Cooperative Heart: Regular rate, Normal S1, Normal S2 Lungs: Clear Abdomen: Normal bowel sounds, Soft Extremities: No clubbing Skin: No rashes, No breakdown Labs LABS Laboratory Tests Test 09/27/18 09:32 09/28/18 04:25 Prothrombin Time 24.8 SEC (11.7-14.0) 30.6 SEC (11.7-14.0) Prothromb Time International Ratio 2.3 (0.8-1.1) 2.9 (0.8-1.1) Hemoglobin 8.7 g/dL (12.0-15.5) Hematocrit 25.5 % (36.0-47.0) Mean Corpuscular Hemoglobin Concent 34 g/dL (31-37) Assessment and Plan Assessmemt and Plan Problems Medical Problems: (1) Anticoagulated on Coumadin Status: Acute (2) 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 Labs Laboratory Tests Test 09/26/18 09:50 09/26/18 14:40 09/27/18 09:32 09/28/18 04:25 White Blood Count 4.4 x10^3/uL (4.0-11.0) Red Blood Count 4.47 x10^6/uL (3.50-5.40) Hemoglobin 13.6 g/dL (12.0-15.5) 8.7 g/dL (12.0-15.5) Hematocrit 39.9 % (36.0-47.0) 25.5 % (36.0-47.0) Mean Corpuscular Volume 89 fL (79-100) Mean Corpuscular Hemoglobin 30 pg (25-35) Mean Corpuscular Hemoglobin Concent 34 g/dL (31-37) 34 g/dL (31-37) Red Cell Distribution Width 15.2 % (11.5-14.5) Platelet Count 168 x10^3/uL (140-400) Neutrophils (%) (Auto) 56 % (31-73) Lymphocytes (%) (Auto) 36 % (24-48) Monocytes (%) (Auto) 7 % (0-9) Eosinophils (%) (Auto) 1 % (0-3) Basophils (%) (Auto) 1 % (0-3) Neutrophils # (Auto) 2.5 x10^3uL (1.8-7.7) Lymphocytes # (Auto) 1.6 x10^3/uL (1.0-4.8) Monocytes # (Auto) 0.3 x10^3/uL (0.0-1.1) Eosinophils # (Auto) 0.0 x10^3/uL (0.0-0.7) Basophils # (Auto) 0.0 x10^3/uL (0.0-0.2) Prothrombin Time 24.7 SEC (11.7-14.0) 21.5 SEC (11.7-14.0) 24.8 SEC (11.7-14.0) 30.6 SEC (11.7-14.0) Prothromb Time International Ratio 2.3 (0.8-1.1) 1.9 (0.8-1.1) 2.3 (0.8-1.1) 2.9 (0.8-1.1) Sodium Level 144 mmol/L (136-145) Potassium Level 3.4 mmol/L (3.5-5.1) Chloride Level 104 mmol/L (98-107) Carbon Dioxide Level 29 mmol/L (21-32) Anion Gap 11 (6-14) Blood Urea Nitrogen 21 mg/dL (7-20) Creatinine 1.2 mg/dL (0.6-1.0) Estimated GFR (Cockcroft-Gault) 44.8 Glucose Level 134 mg/dL (70-99) Calcium Level 9.0 mg/dL (8.5-10.1) Laboratory Tests Test 09/27/18 09:32 09/28/18 04:25 Prothrombin Time 24.8 SEC (11.7-14.0) 30.6 SEC (11.7-14.0) Prothromb Time International Ratio 2.3 (0.8-1.1) 2.9 (0.8-1.1) Hemoglobin 8.7 g/dL (12.0-15.5) Hematocrit 25.5 % (36.0-47.0) Mean Corpuscular Hemoglobin Concent 34 g/dL (31-37) Medications Current Medications Morphine Sulfate (Morphine Sulfate) 4 mg 1X ONCE IV Last administered on 09/26/18at 10:03; Start 09/26/18 at 10:00; Stop 09/26/18 at 10:01; Status DC Sodium Chloride 1,000 ml @ 100 mls/hr Q10H IV Last administered on 09/26/18at 10:18; Start 09/26/18 at 09:52; Stop 09/26/18 at 19:51; Status DC Hydromorphone HCl (Dilaudid) 1 mg 1X ONCE IV Last administered on 09/26/18at 10:49; Start 09/26/18 at 10:45; Stop 09/26/18 at 10:46; Status DC Hydromorphone HCl (Dilaudid) 2 mg STK-MED ONCE .ROUTE ; Start 09/26/18 at 10:33; Stop 09/26/18 at 10:34; Status DC Ondansetron HCl (Zofran) 4 mg PRN Q6HRS PRN IV NAUSEA/VOMITING; Start 09/26/18 at 11:45; Stop 09/27/18 at 11:44; Status DC Fentanyl Citrate (Fentanyl 2ml Vial) 25 mcg PRN Q5MIN PRN IV MILD PAIN 1-3 Last administered on 09/26/18at 15:31; Start 09/26/18 at 11:45; Stop 09/27/18 at 11:44; Status DC Fentanyl Citrate (Fentanyl 2ml Vial) 50 mcg PRN Q5MIN PRN IV MODERATE TO SEVERE PAIN; Start 09/26/18 at 11:45; Stop 09/27/18 at 11:44; Status DC Morphine Sulfate (Morphine Sulfate) 1 mg PRN Q10MIN PRN IV SEVERE PAIN 7-10; Start 09/26/18 at 11:45; Stop 09/27/18 at 11:44; Status DC Ringer's Solution 1,000 ml @ 30 mls/hr Q24H IV Last administered on 09/26/18at 19:51; Start 09/26/18 at 11:39; Stop 09/26/18 at 23:38; Status DC Hydromorphone HCl (Dilaudid) 0.5 mg PRN Q10MIN PRN IV SEV PAIN, Second choice; Start 09/26/18 at 11:45; Stop 09/27/18 at 11:44; Status DC Prochlorperazine Edisylate (Compazine) 5 mg PACU PRN PRN IV NAUSEA, MRX1 Last administered on 09/26/18at 18:28; Start 09/26/18 at 11:45; Stop 09/27/18 at 11:44; Status DC Fentanyl Citrate (Fentanyl 2ml Vial) 50 mcg 1X ONCE IM ; Start 09/26/18 at 14:15; Stop 09/26/18 at 14:51; Status DC Albuterol/ Ipratropium (Duoneb) 3 ml RTQID NEB Last administered on 09/27/18at 18:34; Start 09/26/18 at 16:00 Budesonide (Pulmicort) 0.5 mg RTBID NEB Last administered on 09/27/18at 18:34; Start 09/26/18 at 20:00 Fentanyl Citrate (Fentanyl 2ml Vial) 50 mcg 1X ONCE IV Last administered on 09/26/18at 14:40; Start 09/26/18 at 14:45; Stop 09/26/18 at 14:52; Status DC Propofol 20 ml @ As Directed STK-MED ONCE IV ; Start 09/26/18 at 14:58; Stop 09/26/18 at 14:59; Status DC Lidocaine HCl (Lidocaine Pf 2% Vial) 5 ml STK-MED ONCE .ROUTE ; Start 09/26/18 at 14:58; Stop 09/26/18 at 14:59; Status DC Rocuronium [place] (Zemuron) 50 mg STK-MED ONCE .ROUTE ; Start 09/26/18 at 14:59; Stop 09/26/18 at 15:00; Status DC Fentanyl Citrate (Fentanyl 2ml Vial) 100 mcg STK-MED ONCE .ROUTE ; Start 09/26/18 at 15:14; Stop 09/26/18 at 15:15; Status DC Cefazolin Sodium 100 ml @ As Directed STK-MED ONCE IV ; Start 09/26/18 at 15:46; Stop 09/26/18 at 15:47; Status DC Fentanyl Citrate (Fentanyl 2ml Vial) 100 mcg STK-MED ONCE .ROUTE ; Start 09/26/18 at 15:51; Stop 09/26/18 at 15:52; Status DC Dexamethasone Sodium Phosphate (Decadron) 4 mg STK-MED ONCE .ROUTE ; Start 09/26/18 at 16:02; Stop 09/26/18 at 16:03; Status DC Sevoflurane (Ultane) 90 ml STK-MED ONCE IH ; Start 09/26/18 at 16:02; Stop 09/26/18 at 16:03; Status DC Ondansetron HCl (Zofran) 4 mg STK-MED ONCE .ROUTE ; Start 09/26/18 at 16:23; Stop 09/26/18 at 16:24; Status DC Desflurane (Suprane) 90 ml STK-MED ONCE IH ; Start 09/26/18 at 16:23; Stop 09/26/18 at 16:24; Status DC Phenylephrine HCl (PHENYLEPHRINE in 0.9% NACL PF) 1 mg STK-MED ONCE IV ; Start 09/26/18 at 17:47; Stop 09/26/18 at 17:48; Status DC Bupivacaine HCl (Sensorcaine Mpf 0.5%) 30 ml STK-MED ONCE .ROUTE ; Start 09/26/18 at 18:20; Stop 09/26/18 at 18:21; Status DC Prochlorperazine Edisylate (Compazine) 10 mg STK-MED ONCE .ROUTE ; Start 09/26/18 at 18:26; Stop 09/26/18 at 18:27; Status DC Cefazolin Sodium 50 ml @ 100 mls/hr 1X STAT IV ; Start 09/26/18 at 20:29; Stop 09/26/18 at 20:58; Status UNV Cefazolin Sodium 50 ml @ 100 mls/hr 1X ONCE IV Last administered on 09/26/18at 15:51; Start 09/26/18 at 15:49; Stop 09/26/18 at 21:09; Status DC Cefazolin Sodium 50 ml @ 100 mls/hr 1X STAT IV Last administered on 09/26/18at 15:51; Start 09/26/18 at 15:50; Stop 09/26/18 at 20:49; Status DC Oxycodone HCl (Roxicodone) 5 mg PRN Q3HRS PRN PO PAIN; Start 09/26/18 at 22:30 Morphine Sulfate (Morphine Sulfate) 2 mg PRN Q1HR PRN IV PAIN; Start 09/26/18 at 22:30 Fentanyl Citrate (Fentanyl 2ml Vial) 25 mcg PRN Q1HR PRN IV PAIN; Start 09/26/18 at 22:30 Senna/Docusate Sodium (Senna Plus) 1 tab DAILY PO Last administered on 09/27/18at 09:21; Start 09/27/18 at 09:00 Polyethylene Glycol (miraLAX PACKET) 17 gm PRN DAILY PRN PO CONSTIPATION; Start 09/26/18 at 22:30 Ondansetron HCl (Zofran) 4 mg PRN Q4HRS PRN IV NAUSEA/VOMITING; Start 09/26/18 at 22:30 Warfarin Sodium (Coumadin Per Pharmacy) 1 each PRN DAILY PRN [facility] SEE COMMENTS Last administered on 09/27/18at 15:22; Start 09/27/18 at 22:30 Magnesium Hydroxide (Milk Of Magnesia) 2,400 mg 1X PRN PRN PO CONSTIPATION; Start 09/27/18 at 06:00; Stop 09/28/18 at 05:59; Status DC Bisacodyl (Dulcolax Supp) 10 mg 1X PRN PRN [place] CONSTIPATION; Start 09/27/18 at 16:00; Stop 09/28/18 at 15:59 Acetaminophen/ Hydrocodone Bitart (Lortab 7.5/325) 1 tab PRN Q4HRS PRN PO PAIN; Start 09/26/18 at 22:30 Morphine Sulfate (Morphine Sulfate) 4 mg PRN Q2HR PRN IV PAIN Last administered on 09/28/18at 07:35; Start 09/26/18 at 22:30 Acetaminophen/ Hydrocodone Bitart (Lortab 7.5/325) 2 tab PRN Q4HRS PRN PO PAIN Last administered on 09/28/18at 04:02; Start 09/26/18 at 22:30 Dextrose (Dextrose 50%-Water Syringe) 12.5 gm PRN Q15MIN PRN IV SEE COMMENTS; Start 09/26/18 at 22:30 Cefazolin Sodium/ Dextrose 50 ml @ 100 mls/hr Q6H IV Last administered on 09/27/18at 12:21; Start 09/26/18 at 23:00; Stop 09/27/18 at 11:29; Status DC Warfarin Sodium (Coumadin) 2.5 mg 1X WARF ONCE PO Last administered on 09/27/18at 18:28; Start 09/27/18 at 16:00; Stop 09/27/18 at 16:01; Status DC Active Scripts Active Reported Protonix (Pantoprazole Sodium) 20 Mg Tablet.dr 40 Mg PO DAILY Cetirizine Hcl 10 Mg Tablet 10 Mg PO DAILY Levothyroxine Sodium 112 Mcg Tablet 1 Tab PO DAILY Singulair Tablet (Montelukast Sodium) 10 Mg Tablet 10 Mg PO HS Furosemide 40 Mg Tablet 1 Tab PO QODAY Potassium Chloride 10 Meq Tab.sr.24h 10 Meq PO QODAY Warfarin Sodium 5 Mg Tablet 5 Mg PO DAILY Warfarin Sodium 2.5 Mg Tablet 2.5 Mg PO DAILY [place] 3 Fish Oil Softgel ([place]-3 Fatty Acids/Fish Oil) 1 Each Capsule. 1 Each PO DAILY Aspirin Ec (Aspirin) 81 Mg Tablet. 1 Tab PO DAILY Atorvastatin Calcium 10 Mg Tablet 1 Tab PO DAILY Trazodone Hcl 100 Mg Tablet 100 Mg PO HS Dicyclomine Hcl 20 Mg Tablet 1 Tab PO BID Vitals/I & O Vital Sign - Last 24 Hours 09/27/18 09/27/18 09/27/18 09/27/18 09:21 10:24 11:00 11:43 Temp 98.9 98.9 Pulse 96 Resp 18 B/P (MAP) 133/55 (81) Pulse Ox 97 O2 Delivery Room Air Room Air Room Air Room Air 09/27/18 09/27/18 09/27/18 09/27/18 13:52 15:00 15:26 17:10 Temp 98.6 98.6 Pulse 75 Resp 18 B/P (MAP) 117/49 (71) Pulse Ox 99 98 O2 Delivery Room Air Room Air Nasal Cannula Room Air O2 Flow Rate 2.0 09/27/18 09/27/18 09/27/18 09/27/18 18:29 18:35 19:00 20:05 Temp 98.3 98.3 Pulse 86 Resp 16 B/P (MAP) 119/48 (71) Pulse Ox 91 O2 Delivery Room Air Room Air Room Air Room Air 09/27/18 09/27/18 09/27/18 09/28/18 22:40 23:00 23:10 03:00 Temp 98.6 98.6 98.6 98.6 Pulse 81 71 Resp 20 16 20 18 B/P (MAP) 104/42 (62) 129/43 (71) Pulse Ox 93 97 O2 Delivery Room Air Room Air Room Air Room Air 09/28/18 09/28/18 09/28/18 04:02 05:02 07:35 Resp 20 20 O2 Delivery BiPAP/CPAP BiPAP/CPAP Room Air Intake and Output 09/27/18 09/27/18 09/28/18 15:00 23:00 07:00 Intake Total 520 ml Output Total 850 ml 900 ml Balance -330 ml -900 ml WILFREDO ALVAREZ MD Sep 28, 2018 08:13
[2018-09-28] MEDS: IPRATRPIUM/ALBUTEROL 0.5/2.5MG 3 ML NEBU. NEB SCH ×4 (08:27→20:01)
[2018-09-28] MEDS: BUDESONIDE 0.5 MG/2 ML NEBU. NEB SCH ×2 (08:27→20:01)
[2018-09-28] MEDS: SENNOSIDES/DOCUSATE 8.6/50MG TABLET. PO SCH (09:54)
[2018-09-28 11:00] VITALS: BP 139/77
[2018-09-28] MEDS: oxyCODONE IR 5 MG TABLET PO PRN ×2 (12:21→17:32)
[2018-09-28] MEDS ORDERED: MAGNESIUM HYDROXIDE 2,400 MG/30 ML ORAL.SUSP. PO PRN (12:30)
[2018-09-28] MEDS ORDERED: ATORVASTATIN CALCIUM 10 MG TABLET. PO SCH (13:00)
[2018-09-28] MEDS: OMEGA-3 FATTY ACIDS/FISH OIL 1,000 MG CAPSULE. PO SCH (14:01)
[2018-09-28] MEDS: POLYETHYLENE GLYCOL 3350 17 GM PACKET. PO SCH ×2 (14:01→20:03)
[2018-09-28] MEDS: FUROSEMIDE 40 MG TABLET. PO SCH (14:01)
[2018-09-28] MEDS: POTASSIUM CHLORIDE 10 MEQ TABLET.ER. PO SCH (14:01)
[2018-09-28] MEDS: ASPIRIN ENTERIC COATED 81 MG TABLET.DR. PO SCH (14:01)
[2018-09-28] MEDS: CETIRIZINE HCL 10 MG TABLET. PO SCH (14:02)
[2018-09-28] MEDS: LEVOTHYROXINE 112 MCG TABLET PO SCH (14:02)
--- NOTE | 2018-09-28 14:59 | NUR ---
Pharmacy Warfarin Dosing Note S:Pharmacy consulted to assist with anticoagulation therapy started with target INR: 2 -3 O:PEDRITO MARTINEZ is a 68 year old F with DVT/PE LABS: Last INR: 2.9 Last HGB: 8.7 Last HCT: 25.5 Last PLT: 168 Last dose of 2.5 mg given on 09/27/18 at 1600 Previous Regimen: 2.5MG Vitamin K given: Drug Interaction Changes: Ongoing Drug Interactions: A:INR of 2.9 is within desired range. Target range for this patient is: 2 -3 P: Warfarin dose: 1 mg Today at 1600 [facility]: Next INR due TOMORROW. Pharmacy anticoagulation service will continue to follow. NATY NETTLES [facility], 09/28/18 [id number]
[2018-09-28 15:00] VITALS: BP 142/50
[2018-09-28] MEDS ORDERED: WARFARIN 1 MG TABLET. PO ONE (16:00)
[2018-09-28] MEDS: PANTOPRAZOLE 40 MG TABLET.DR. PO SCH (16:44)
[2018-09-28 19:00] VITALS: BP 125/46
[2018-09-28] MEDS: traZODone 100 MG TABLET. PO SCH (20:04)
[2018-09-28] MEDS: DICYCLOMINE HCL 10 MG CAPSULE PO SCH (20:04)
[2018-09-28] MEDS: ATORVASTATIN CALCIUM 10 MG TABLET. PO SCH (20:04)
[2018-09-28] MEDS: NYSTATIN TOPICAL POWDER 15GM BOTTLE. TP SCH (20:05)
[2018-09-28] MEDS: MONTELUKAST SODIUM 10 MG TABLET. PO SCH (20:05)
--- NOTE | 2018-09-28 20:06 | NUR ---
Patient request HS meds with pain pills to rest.
[2018-09-28 23:00] VITALS: BP 113/51
[2018-09-29 03:00] VITALS: BP 123/55
[2018-09-29 05:18] LABS: PROTHROMBIN TIME PATIENT 27.5 SEC (11.7-14.0)
--- NOTE | 2018-09-29 05:59 | NUR ---
Patient has rested quietly tonight. CPAP on and no s/s of distress. Call light in reach. Patient's son remains at bedside.
[2018-09-29] MEDS: LEVOTHYROXINE 112 MCG TABLET PO SCH (06:28)
[2018-09-29] MEDS: PANTOPRAZOLE 40 MG TABLET.DR. PO SCH (06:28)
[2018-09-29 07:00] VITALS: BP 101/66
[2018-09-29] MEDS: BUDESONIDE 0.5 MG/2 ML NEBU. NEB SCH ×2 (07:30→19:52)
[2018-09-29] MEDS: IPRATRPIUM/ALBUTEROL 0.5/2.5MG 3 ML NEBU. NEB SCH ×4 (07:30→19:52)
[2018-09-29] MEDS: MORPHINE SULFATE 4 MG/ML VIAL. IV PRN ×2 (08:40→21:00)
[2018-09-29] MEDS: ASPIRIN ENTERIC COATED 81 MG TABLET.DR. PO SCH (08:47)
[2018-09-29] MEDS: CETIRIZINE HCL 10 MG TABLET. PO SCH (08:47)
[2018-09-29] MEDS: OMEGA-3 FATTY ACIDS/FISH OIL 1,000 MG CAPSULE. PO SCH (08:47)
[2018-09-29] MEDS: HYDROcodone/APAP 7.5/325MG 1 TAB TABLET PO PRN ×2 (08:48→14:29)
[2018-09-29] MEDS: DICYCLOMINE HCL 10 MG CAPSULE PO SCH ×2 (08:50→21:44)
[2018-09-29] MEDS: SENNOSIDES/DOCUSATE 8.6/50MG TABLET. PO SCH (08:51)
[2018-09-29] MEDS: POLYETHYLENE GLYCOL 3350 17 GM PACKET. PO SCH ×2 (08:51→21:43)
[2018-09-29] MEDS: NYSTATIN TOPICAL POWDER 15GM BOTTLE. TP SCH ×2 (08:52→21:45)
[2018-09-29 11:00] VITALS: BP 141/42
--- NOTE | 2018-09-29 12:31 | PDOC ---
[employer] PROGRESS NOTE Chief Complaint Chief Complaint Day #2 s/p ORIF with locking plate screw and cable fixation periprosthetic left distal femur fracture. Left leg fracture - comminuted. Pain control. postop CAD s/p CABG 2006 - cont home meds. Had recent stress test that was negative. CAS on CPAP - will bring home CPAP COPD - cont on nebulizers HLD - cont statin HTN - cont meds after surgery DVT on warfarin - FFP was given to reverse INR, will place back on post op History of Present Illness History of Present Illness Patient resting with no apparent distress Has a son present who is in the chair snoring Discussed with RN Reviewed chart Vitals Vitals Vital Signs Date Time Temp Pulse Resp B/P (MAP) Pulse Ox O2 Delivery O2 Flow Rate FiO2 09/29/18 09:48 16 Room Air 09/29/18 07:31 95 09/29/18 07:00 97.7 73 101/66 (78) 97.7 09/28/18 07:00 2.0 Physical Exam General: Other (resting with no apparent distress) Heart: Regular rate, Normal S1, Normal S2 Lungs: Clear Abdomen: Normal bowel sounds, Soft Extremities: No clubbing Skin: No rashes, No breakdown Labs Labs: Laboratory Tests Test 09/29/18 04:45 Prothrombin Time 27.5 SEC (11.7-14.0) Prothromb Time International Ratio 2.6 (0.8-1.1) Assessment and Plan Assessmemt and Plan Problems Medical Problems: (1) Anticoagulated on Coumadin Status: Acute (2) 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 Left leg fracture - comminuted. Pain control. postop CAD s/p CABG 2006 - cont home meds. Had recent stress test that was negative. CAS on CPAP - will bring home CPAP COPD - cont on nebulizers HLD - cont statin HTN - cont meds after surgery DVT on warfarin - FFP was given to reverse INR, will place back on post op Plan Wound senior living meds PT OT DVT prophylaxis Nebulizers CPAP Probably need half-way Comment Review of Relevant I have reviewed the following items sol (where applicable) has been applied. Labs Laboratory Tests Test 09/28/18 04:25 09/29/18 04:45 Hemoglobin 8.7 g/dL (12.0-15.5) Hematocrit 25.5 % (36.0-47.0) Mean Corpuscular Hemoglobin Concent 34 g/dL (31-37) Prothrombin Time 30.6 SEC (11.7-14.0) 27.5 SEC (11.7-14.0) Prothromb Time International Ratio 2.9 (0.8-1.1) 2.6 (0.8-1.1) Laboratory Tests Test 09/29/18 04:45 Prothrombin Time 27.5 SEC (11.7-14.0) Prothromb Time International Ratio 2.6 (0.8-1.1) Medications Current Medications Morphine Sulfate (Morphine Sulfate) 4 mg 1X ONCE IV Last administered on 09/26/18at 10:03; Start 09/26/18 at 10:00; Stop 09/26/18 at 10:01; Status DC Sodium Chloride 1,000 ml @ 100 mls/hr Q10H IV Last administered on 09/26/18at 10:18; Start 09/26/18 at 09:52; Stop 09/26/18 at 19:51; Status DC Hydromorphone HCl (Dilaudid) 1 mg 1X ONCE IV Last administered on 09/26/18at 10:49; Start 09/26/18 at 10:45; Stop 09/26/18 at 10:46; Status DC Hydromorphone HCl (Dilaudid) 2 mg STK-MED ONCE .ROUTE ; Start 09/26/18 at 10:33; Stop 09/26/18 at 10:34; Status DC Ondansetron HCl (Zofran) 4 mg PRN Q6HRS PRN IV NAUSEA/VOMITING; Start 09/26/18 at 11:45; Stop 09/27/18 at 11:44; Status DC Fentanyl Citrate (Fentanyl 2ml Vial) 25 mcg PRN Q5MIN PRN IV MILD PAIN 1-3 Last administered on 09/26/18at 15:31; Start 09/26/18 at 11:45; Stop 09/27/18 at 11:44; Status DC Fentanyl Citrate (Fentanyl 2ml Vial) 50 mcg PRN Q5MIN PRN IV MODERATE TO SEVERE PAIN; Start 09/26/18 at 11:45; Stop 09/27/18 at 11:44; Status DC Morphine Sulfate (Morphine Sulfate) 1 mg PRN Q10MIN PRN IV SEVERE PAIN 7-10; Start 09/26/18 at 11:45; Stop 09/27/18 at 11:44; Status DC Ringer's Solution 1,000 ml @ 30 mls/hr Q24H IV Last administered on 09/26/18at 19:51; Start 09/26/18 at 11:39; Stop 09/26/18 at 23:38; Status DC Hydromorphone HCl (Dilaudid) 0.5 mg PRN Q10MIN PRN IV SEV PAIN, Second choice; Start 09/26/18 at 11:45; Stop 09/27/18 at 11:44; Status DC Prochlorperazine Edisylate (Compazine) 5 mg PACU PRN PRN IV NAUSEA, MRX1 Last administered on 09/26/18at 18:28; Start 09/26/18 at 11:45; Stop 09/27/18 at 11:44; Status DC Fentanyl Citrate (Fentanyl 2ml Vial) 50 mcg 1X ONCE IM ; Start 09/26/18 at 14:15; Stop 09/26/18 at 14:51; Status DC Albuterol/ Ipratropium (Duoneb) 3 ml RTQID NEB Last administered on 09/29/18at 07:30; Start 09/26/18 at 16:00 Budesonide (Pulmicort) 0.5 mg RTBID NEB Last administered on 09/29/18at 07:30; Start 09/26/18 at 20:00 Fentanyl Citrate (Fentanyl 2ml Vial) 50 mcg 1X ONCE IV Last administered on 09/26/18at 14:40; Start 09/26/18 at 14:45; Stop 09/26/18 at 14:52; Status DC Propofol 20 ml @ As Directed STK-MED ONCE IV ; Start 09/26/18 at 14:58; Stop 09/26/18 at 14:59; Status DC Lidocaine HCl (Lidocaine Pf 2% Vial) 5 ml STK-MED ONCE .ROUTE ; Start 09/26/18 at 14:58; Stop 09/26/18 at 14:59; Status DC Rocuronium [place] (Zemuron) 50 mg STK-MED ONCE .ROUTE ; Start 09/26/18 at 14:59; Stop 09/26/18 at 15:00; Status DC Fentanyl Citrate (Fentanyl 2ml Vial) 100 mcg STK-MED ONCE .ROUTE ; Start 09/26/18 at 15:14; Stop 09/26/18 at 15:15; Status DC Cefazolin Sodium 100 ml @ As Directed STK-MED ONCE IV ; Start 09/26/18 at 15:46; Stop 09/26/18 at 15:47; Status DC Fentanyl Citrate (Fentanyl 2ml Vial) 100 mcg STK-MED ONCE .ROUTE ; Start 09/26/18 at 15:51; Stop 09/26/18 at 15:52; Status DC Dexamethasone Sodium Phosphate (Decadron) 4 mg STK-MED ONCE .ROUTE ; Start 09/26/18 at 16:02; Stop 09/26/18 at 16:03; Status DC Sevoflurane (Ultane) 90 ml STK-MED ONCE IH ; Start 09/26/18 at 16:02; Stop 09/26/18 at 16:03; Status DC Ondansetron HCl (Zofran) 4 mg STK-MED ONCE .ROUTE ; Start 09/26/18 at 16:23; Stop 09/26/18 at 16:24; Status DC Desflurane (Suprane) 90 ml STK-MED ONCE IH ; Start 09/26/18 at 16:23; Stop 09/26/18 at 16:24; Status DC Phenylephrine HCl (PHENYLEPHRINE in 0.9% NACL PF) 1 mg STK-MED ONCE IV ; Start 09/26/18 at 17:47; Stop 09/26/18 at 17:48; Status DC Bupivacaine HCl (Sensorcaine Mpf 0.5%) 30 ml STK-MED ONCE .ROUTE ; Start 09/26/18 at 18:20; Stop 09/26/18 at 18:21; Status DC Prochlorperazine Edisylate (Compazine) 10 mg STK-MED ONCE .ROUTE ; Start 09/26/18 at 18:26; Stop 09/26/18 at 18:27; Status DC Cefazolin Sodium 50 ml @ 100 mls/hr 1X STAT IV ; Start 09/26/18 at 20:29; Stop 09/26/18 at 20:58; Status UNV Cefazolin Sodium 50 ml @ 100 mls/hr 1X ONCE IV Last administered on 09/26/18at 15:51; Start 09/26/18 at 15:49; Stop 09/26/18 at 21:09; Status DC Cefazolin Sodium 50 ml @ 100 mls/hr 1X STAT IV Last administered on 09/26/18at 15:51; Start 09/26/18 at 15:50; Stop 09/26/18 at 20:49; Status DC Oxycodone HCl (Roxicodone) 5 mg PRN Q3HRS PRN PO PAIN SEVERE Last administered on 09/28/18at 17:32; Start 09/26/18 at 22:30 Morphine Sulfate (Morphine Sulfate) 2 mg PRN Q1HR PRN IV PAIN MILD; Start 09/26/18 at 22:30 Fentanyl Citrate (Fentanyl 2ml Vial) 25 mcg PRN Q1HR PRN IV PAIN SEVERE; Start 09/26/18 at 22:30 Senna/Docusate Sodium (Senna Plus) 1 tab DAILY PO Last administered on 09/28/18at 09:54; Start 09/27/18 at 09:00 Polyethylene Glycol (miraLAX PACKET) 17 gm PRN DAILY PRN PO CONSTIPATION; Start 09/26/18 at 22:30; Stop 09/28/18 at 12:18; Status DC Ondansetron HCl (Zofran) 4 mg PRN Q4HRS PRN IV NAUSEA/VOMITING; Start 09/26/18 at 22:30 Warfarin Sodium (Coumadin Per Pharmacy) 1 each PRN DAILY PRN MC SEE COMMENTS Last administered on 09/28/18at 14:54; Start 09/27/18 at 22:30 Magnesium Hydroxide (Milk Of Magnesia) 2,400 mg 1X PRN PRN PO CONSTIPATION; Start 09/27/18 at 06:00; Stop 09/28/18 at 05:59; Status DC Bisacodyl (Dulcolax Supp) [address] CONSTIPATION; Start 09/27/18 at 16:00; Stop 09/28/18 at 15:59; Status DC Acetaminophen/ Hydrocodone Bitart (Lortab 7.5/325) 1 tab PRN Q4HRS PRN PO PAIN MILD; Start 09/26/18 at 22:30 Morphine Sulfate (Morphine Sulfate) 4 mg PRN Q2HR PRN IV PAIN MODERATE Last administered on 09/29/18 08:40; Start 09/26/18 at 22:30 Acetaminophen/ Hydrocodone Bitart (Lortab 7.5/325) 2 tab PRN Q4HRS PRN PO PAIN MODERATE Last administered on 09/29/18 08:48; Start 09/26/18 at 22:30 Dextrose (Dextrose 50%-Water Syringe) 12.5 gm PRN Q15MIN PRN IV SEE COMMENTS; Start 09/26/18 at 22:30 Cefazolin Sodium/ Dextrose 50 ml @ 100 mls/hr Q6H IV Last administered on 09/27/18 12:21; Start 09/26/18 at 23:00; Stop 09/27/18 at 11:29; Status DC Warfarin Sodium (Coumadin) 2.5 mg 1X WARF ONCE PO Last administered on 09/27/18 18:28; Start 09/27/18 at 16:00; Stop 09/27/18 at 16:01; Status DC Polyethylene Glycol (miraLAX PACKET) 17 gm BID PO Last administered on 09/28/18 20:03; Start 09/28/18 at 13:00 Aspirin (Ecotrin) 81 mg DAILY PO Last administered on 09/29/18 08:47; Start 09/28/18 at 13:00 Atorvastatin Calcium (Lipitor) 10 mg DAILY PO ; Start 09/28/18 at 13:00; Stop 09/28/18 at 16:26; Status DC Cetirizine HCl (ZyrTEC) 10 mg DAILY PO Last administered on 09/29/18 08:47; Start 09/28/18 at 13:00 Furosemide (Lasix) 40 mg QODAY PO ; Start 09/28/18 at 13:00 Levothyroxine Sodium (Synthroid) 112 mcg DAILY06 PO Last administered on 06:28; Start 09/28/18 at 13:00 Potassium Chloride (Klor-Con) 10 meq QODAY PO ; Start 09/28/18 at 13:00 Trazodone HCl (Desyrel) 100 mg HS PO Last administered on 09/28/18 20:04; Start 09/28/18 at 21:00 Montelukast Sodium (Singulair) 10 mg QHS PO Last administered on 09/28/18 20:05; Start 09/28/18 at 21:00 Fish Oil (Fish Oil) 1,000 mg DAILY PO Last administered on 09/29/18at 08:47; Start 09/28/18 at 13:00 Magnesium Hydroxide (Milk Of Magnesia) 2,400 mg PRN DAILY PRN PO CONSTIPATION; Start 09/28/18 at 12:30 Warfarin Sodium (Coumadin) 1 mg 1X WARF ONCE PO Last administered on 09/28/18 17:31; Start 09/28/18 at 16:00; Stop 09/28/18 at 16:01; Status DC Dicyclomine HCl (Bentyl) 20 mg BID PO Last administered on 09/28/18at 20:04; Start 09/28/18 at 21:00 Pantoprazole Sodium (Protonix) 40 mg DAILYAC PO Last administered on 09/29/18at 06:28; Start 09/28/18 at 17:00 Atorvastatin Calcium (Lipitor) 10 mg QHS PO Last administered on 09/28/18at 20:04; Start 09/28/18 at 21:00 Nystatin (Nystop) 1 jailyn BID TP Last administered on 09/29/18at 08:52; Start 09/28/18 at 21:00 Active Scripts Active Reported Protonix (Pantoprazole Sodium) 20 Mg Tablet.dr 40 Mg PO DAILY Cetirizine Hcl 10 Mg Tablet 10 Mg PO DAILY Levothyroxine Sodium 112 Mcg Tablet 1 Tab PO DAILY Singulair Tablet (Montelukast Sodium) 10 Mg Tablet 10 Mg PO HS Furosemide 40 Mg Tablet 1 Tab PO QODAY Potassium Chloride 10 Meq Tab.sr.24h 10 Meq PO QODAY Warfarin Sodium 5 Mg Tablet 5 Mg PO DAILY Warfarin Sodium 2.5 Mg Tablet 2.5 Mg PO DAILY [place] 3 Fish Oil Softgel ([place]-3 Fatty Acids/Fish Oil) 1 Each Capsule.dr 1 Each PO DAILY Aspirin Ec (Aspirin) 81 Mg Tablet.dr 1 Tab PO DAILY Atorvastatin Calcium 10 Mg Tablet 1 Tab PO QHS Trazodone Hcl 100 Mg Tablet 100 Mg PO HS Dicyclomine Hcl 20 Mg Tablet 1 Tab PO BID Vitals/I & O Vital Sign - Last 24 Hours 09/28/18 09/28/18 09/28/18 09/28/18 15:00 15:17 16:43 17:32 Temp 98.4 98.4 Pulse 85 Resp 18 B/P (MAP) 142/50 (80) Pulse Ox 94 O2 Delivery Room Air Room Air Room Air Room Air 09/28/18 09/28/18 09/28/18 09/28/18 18:30 19:00 19:57 20:00 Temp 98.4 98.4 Pulse 74 Resp 18 B/P (MAP) 125/46 (72) Pulse Ox 99 O2 Delivery Room Air Room Air Room Air Room Air 09/28/18 09/28/18 09/28/18 09/29/18 20:04 22:36 23:00 03:00 Temp 98.6 98.8 98.6 98.8 Pulse 70 71 Resp 18 20 18 18 B/P (MAP) 113/51 (71) 123/55 (77) Pulse Ox 99 97 92 O2 Delivery Room Air Room Air Room Air Room Air 09/29/18 09/29/18 09/29/18 09/29/18 07:00 07:31 08:40 08:48 Temp 97.7 97.7 Pulse 73 Resp 18 16 18 B/P (MAP) 101/66 (78) Pulse Ox 95 95 O2 Delivery Room Air Room Air Room Air Room Air 09/29/18 09/29/18 09:10 09:48 Resp 18 16 O2 Delivery Room Air Room Air Intake and Output 0 09/28/18 09/28/18 09/29/18 14:59 22:59 06:59 Intake Total 400 ml 200 ml Output Total 250 ml Balance 150 ml 200 ml NATALIE KEATING III DO Sep 29, 2018 12:31
--- NOTE | 2018-09-29 13:26 | NUR ---
Pharmacy Warfarin Dosing Note S:Pharmacy consulted to assist with anticoagulation therapy started with target INR: 2 -3 O:PEDRITO MARTINEZ is a 68 year old F with DVT/PE LABS: Last INR: 2.6 Last HGB: 8.7 Last HCT: 25.5 Last PLT: 168 Last dose of 1 mg given on 09/28/18 at 1600 Previous Regimen: 2.5MG Vitamin K given: Drug Interaction Changes: Ongoing Drug Interactions: A:INR of 2.6 is within desired range. Target range for this patient is: 2 -3 P: Warfarin dose: 2.5 mg Today at 1600 [facility]: Next INR due TOMORROW. Pharmacy anticoagulation service will continue to follow. NATY NETTLES [facility], 09/29/18 [id number]
[2018-09-29 15:00] VITALS: BP 119/43
[2018-09-29] MEDS ORDERED: WARFARIN 2.5 MG TABLET. PO ONE (16:00)
[2018-09-29 19:00] VITALS: BP 136/38
[2018-09-29] MEDS: ATORVASTATIN CALCIUM 10 MG TABLET. PO SCH (21:43)
[2018-09-29] MEDS: traZODone 100 MG TABLET. PO SCH (21:44)
[2018-09-29] MEDS: MONTELUKAST SODIUM 10 MG TABLET. PO SCH (21:44)
[2018-09-29 22:59] VITALS: BP 135/51
[2018-09-30 03:00] VITALS: BP 136/39
[2018-09-30] MEDS: PANTOPRAZOLE 40 MG TABLET.DR. PO SCH (06:28)
[2018-09-30] MEDS: LEVOTHYROXINE 112 MCG TABLET PO SCH (06:28)
[2018-09-30] MEDS: MORPHINE SULFATE 4 MG/ML VIAL. IV PRN ×2 (06:44→22:47)
[2018-09-30 07:00] VITALS: BP 151/35
[2018-09-30] MEDS: IPRATRPIUM/ALBUTEROL 0.5/2.5MG 3 ML NEBU. NEB SCH ×4 (07:00→19:59)
[2018-09-30] MEDS: BUDESONIDE 0.5 MG/2 ML NEBU. NEB SCH ×2 (07:00→19:59)
[2018-09-30] MEDS: POLYETHYLENE GLYCOL 3350 17 GM PACKET. PO SCH ×2 (09:29→21:00)
[2018-09-30] MEDS: HYDROcodone/APAP 7.5/325MG 1 TAB TABLET PO PRN ×3 (09:31→22:39)
[2018-09-30] MEDS: CETIRIZINE HCL 10 MG TABLET. PO SCH (09:31)
[2018-09-30] MEDS: OMEGA-3 FATTY ACIDS/FISH OIL 1,000 MG CAPSULE. PO SCH (09:31)
[2018-09-30] MEDS: FUROSEMIDE 40 MG TABLET. PO SCH (09:31)
[2018-09-30] MEDS: ASPIRIN ENTERIC COATED 81 MG TABLET.DR. PO SCH (09:32)
[2018-09-30] MEDS: DICYCLOMINE HCL 10 MG CAPSULE PO SCH ×2 (09:32→22:40)
[2018-09-30] MEDS: POTASSIUM CHLORIDE 10 MEQ TABLET.ER. PO SCH (09:32)
[2018-09-30] MEDS: SENNOSIDES/DOCUSATE 8.6/50MG TABLET. PO SCH (09:32)
[2018-09-30] MEDS: NYSTATIN TOPICAL POWDER 15GM BOTTLE. TP SCH ×2 (09:33→22:41)
[2018-09-30 11:00] VITALS: BP 107/33
--- NOTE | 2018-09-30 11:16 | PDOC ---
[employer] PROGRESS NOTE Chief Complaint Chief Complaint Day #3 s/p ORIF with locking plate screw and cable fixation periprosthetic left distal femur fracture. Left leg fracture - comminuted. Pain control. postop CAD s/p CABG 2006 - cont home meds. Had recent stress test that was negative. CAS on CPAP - will bring home CPAP COPD - cont on nebulizers HLD - cont statin HTN - cont meds after surgery DVT on warfarin - FFP was given to reverse INR, will place back on post op History of Present Illness History of Present Illness 6�17�2019 Patient seen and examined with case management Replanning to get her to [facility] rehabilitation hopefully Patient resting with no apparent distress Has a son present who is in the chair snoring Discussed with RN Reviewed chart Vitals Vitals Vital Signs Date Time Temp Pulse Resp B/P (MAP) Pulse Ox O2 Delivery O2 Flow Rate FiO2 09/30/18 11:10 96 Room Air 09/30/18 07:00 97.8 94 16 151/35 (73) 97.8 09/29/18 21:30 2.0 Physical Exam General: Alert, Other (resting with no apparent distress) Heart: Regular rate, Normal S1, Normal S2 Lungs: Clear Abdomen: Normal bowel sounds, Soft Extremities: No clubbing Skin: No rashes, No breakdown Labs Labs: Laboratory Tests Test 09/30/18 05:45 Prothrombin Time 25.0 SEC (11.7-14.0) Prothromb Time International Ratio 2.3 (0.8-1.1) Assessment and Plan Assessmemt and Plan Problems Medical Problems: (1) Anticoagulated on Coumadin Status: Acute (2) 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 Left leg fracture - comminuted. Pain control. postop CAD s/p CABG 2006 - cont home meds. Had recent stress test that was negative. CAS on CPAP - will bring home CPAP COPD - cont on nebulizers HLD - cont statin HTN - cont meds after surgery DVT on warfarin - FFP was given to reverse INR, will place back on post op Plan Wound halfway meds PT OT DVT prophylaxis Nebulizers CPAP Probably going to [facility] rehabilitation if we can get insurance to cover that if not then senior care Comment Review of Relevant I have reviewed the following items sol (where applicable) has been applied. Labs Laboratory Tests Test 09/29/18 04:45 09/30/18 05:45 Prothrombin Time 27.5 SEC (11.7-14.0) 25.0 SEC (11.7-14.0) Prothromb Time International Ratio 2.6 (0.8-1.1) 2.3 (0.8-1.1) Laboratory Tests Test 09/30/18 05:45 Prothrombin Time 25.0 SEC (11.7-14.0) Prothromb Time International Ratio 2.3 (0.8-1.1) Medications Current Medications Morphine Sulfate (Morphine Sulfate) 4 mg 1X ONCE IV Last administered on 09/26/18at 10:03; Start 09/26/18 at 10:00; Stop 09/26/18 at 10:01; Status DC Sodium Chloride 1,000 ml @ 100 mls/hr Q10H IV Last administered on 09/26/18at 10:18; Start 09/26/18 at 09:52; Stop 09/26/18 at 19:51; Status DC Hydromorphone HCl (Dilaudid) 1 mg 1X ONCE IV Last administered on 09/26/18at 10:49; Start 09/26/18 at 10:45; Stop 09/26/18 at 10:46; Status DC Hydromorphone HCl (Dilaudid) 2 mg STK-MED ONCE .ROUTE ; Start 09/26/18 at 10:33; Stop 09/26/18 at 10:34; Status DC Ondansetron HCl (Zofran) 4 mg PRN Q6HRS PRN IV NAUSEA/VOMITING; Start 09/26/18 at 11:45; Stop 09/27/18 at 11:44; Status DC Fentanyl Citrate (Fentanyl 2ml Vial) 25 mcg PRN Q5MIN PRN IV MILD PAIN 1-3 Last administered on 09/26/18at 15:31; Start 09/26/18 at 11:45; Stop 09/27/18 at 11:44; Status DC Fentanyl Citrate (Fentanyl 2ml Vial) 50 mcg PRN Q5MIN PRN IV MODERATE TO SEVERE PAIN; Start 09/26/18 at 11:45; Stop 09/27/18 at 11:44; Status DC Morphine Sulfate (Morphine Sulfate) 1 mg PRN Q10MIN PRN IV SEVERE PAIN 7-10; Start 09/26/18 at 11:45; Stop 09/27/18 at 11:44; Status DC Ringer's Solution 1,000 ml @ 30 mls/hr Q24H IV Last administered on 09/26/18at 19:51; Start 09/26/18 at 11:39; Stop 09/26/18 at 23:38; Status DC Hydromorphone HCl (Dilaudid) 0.5 mg PRN Q10MIN PRN IV SEV PAIN, Second choice; Start 09/26/18 at 11:45; Stop 09/27/18 at 11:44; Status DC Prochlorperazine Edisylate (Compazine) 5 mg PACU PRN PRN IV NAUSEA, MRX1 Last administered on 09/26/18at 18:28; Start 09/26/18 at 11:45; Stop 09/27/18 at 11:44; Status DC Fentanyl Citrate (Fentanyl 2ml Vial) 50 mcg 1X ONCE IM ; Start 09/26/18 at 14:15; Stop 09/26/18 at 14:51; Status DC Albuterol/ Ipratropium (Duoneb) 3 ml RTQID NEB Last administered on 09/30/18at 11:10; Start 09/26/18 at 16:00 Budesonide (Pulmicort) 0.5 mg RTBID NEB Last administered on 09/30/18at 07:00; Start 09/26/18 at 20:00 Fentanyl Citrate (Fentanyl 2ml Vial) 50 mcg 1X ONCE IV Last administered on 09/26/18at 14:40; Start 09/26/18 at 14:45; Stop 09/26/18 at 14:52; Status DC Propofol 20 ml @ As Directed STK-MED ONCE IV ; Start 09/26/18 at 14:58; Stop 09/26/18 at 14:59; Status DC Lidocaine HCl (Lidocaine Pf 2% Vial) 5 ml STK-MED ONCE .ROUTE ; Start 09/26/18 at 14:58; Stop 09/26/18 at 14:59; Status DC Rocuronium [place] (Zemuron) 50 mg STK-MED ONCE .ROUTE ; Start 09/26/18 at 14:59; Stop 09/26/18 at 15:00; Status DC Fentanyl Citrate (Fentanyl 2ml Vial) 100 mcg STK-MED ONCE .ROUTE ; Start 09/26/18 at 15:14; Stop 09/26/18 at 15:15; Status DC Cefazolin Sodium 100 ml @ As Directed STK-MED ONCE IV ; Start 09/26/18 at 15:46; Stop 09/26/18 at 15:47; Status DC Fentanyl Citrate (Fentanyl 2ml Vial) 100 mcg STK-MED ONCE .ROUTE ; Start 09/26/18 at 15:51; Stop 09/26/18 at 15:52; Status DC Dexamethasone Sodium Phosphate (Decadron) 4 mg STK-MED ONCE .ROUTE ; Start 09/26/18 at 16:02; Stop 09/26/18 at 16:03; Status DC Sevoflurane (Ultane) 90 ml STK-MED ONCE IH ; Start 09/26/18 at 16:02; Stop 09/26/18 at 16:03; Status DC Ondansetron HCl (Zofran) 4 mg STK-MED ONCE .ROUTE ; Start 09/26/18 at 16:23; Stop 09/26/18 at 16:24; Status DC Desflurane (Suprane) 90 ml STK-MED ONCE IH ; Start 09/26/18 at 16:23; Stop 09/26/18 at 16:24; Status DC Phenylephrine HCl (PHENYLEPHRINE in 0.9% NACL PF) 1 mg STK-MED ONCE IV ; Start 09/26/18 at 17:47; Stop 09/26/18 at 17:48; Status DC Bupivacaine HCl (Sensorcaine Mpf 0.5%) 30 ml STK-MED ONCE .ROUTE ; Start 09/26/18 at 18:20; Stop 09/26/18 at 18:21; Status DC Prochlorperazine Edisylate (Compazine) 10 mg STK-MED ONCE .ROUTE ; Start 09/26/18 at 18:26; Stop 09/26/18 at 18:27; Status DC Cefazolin Sodium 50 ml @ 100 mls/hr 1X STAT IV ; Start 09/26/18 at 20:29; Stop 09/26/18 at 20:58; Status UNV Cefazolin Sodium 50 ml @ 100 mls/hr 1X ONCE IV Last administered on 09/26/18at 15:51; Start 09/26/18 at 15:49; Stop 09/26/18 at 21:09; Status DC Cefazolin Sodium 50 ml @ 100 mls/hr 1X STAT IV Last administered on 09/26/18at 15:51; Start 09/26/18 at 15:50; Stop 09/26/18 at 20:49; Status DC Oxycodone HCl (Roxicodone) 5 mg PRN Q3HRS PRN PO PAIN SEVERE Last administered on 09/28/18at 17:32; Start 09/26/18 at 22:30 Morphine Sulfate (Morphine Sulfate) 2 mg PRN Q1HR PRN IV PAIN MILD; Start 09/26/18 at 22:30 Fentanyl Citrate (Fentanyl 2ml Vial) 25 mcg PRN Q1HR PRN IV PAIN SEVERE; Start 09/26/18 at 22:30 Senna/Docusate Sodium (Senna Plus) 1 tab DAILY PO Last administered on 09/30/18at 09:32; Start 09/27/18 at 09:00 Polyethylene Glycol (miraLAX PACKET) 17 gm PRN DAILY PRN PO CONSTIPATION; Start 09/26/18 at 22:30; Stop 09/28/18 at 12:18; Status DC Ondansetron HCl (Zofran) 4 mg PRN Q4HRS PRN IV NAUSEA/VOMITING; Start 09/26/18 at 22:30 Warfarin Sodium (Coumadin Per Pharmacy) 1 each PRN DAILY PRN MC SEE COMMENTS Last administered on 09/29/18at 13:24; Start 09/27/18 at 22:30 Magnesium Hydroxide (Milk Of Magnesia) 2,400 mg 1X PRN PRN PO CONSTIPATION; Start 09/27/18 at 06:00; Stop 09/28/18 at 05:59; Status DC Bisacodyl (Dulcolax Supp) 10 mg 1X PRN PRN [place] CONSTIPATION; Start 09/27/18 at 16:00; Stop 09/28/18 at 15:59; Status DC Acetaminophen/ Hydrocodone Bitart (Lortab 7.5/325) 1 tab PRN Q4HRS PRN PO PAIN MILD; Start 09/26/18 at 22:30 Morphine Sulfate (Morphine Sulfate) 4 mg PRN Q2HR PRN IV PAIN MODERATE Last administered on 09/30/18at 06:44; Start 09/26/18 at 22:30 Acetaminophen/ Hydrocodone Bitart (Lortab 7.5/325) 2 tab PRN Q4HRS PRN PO PAIN MODERATE Last administered on 09/30/18 09:31; Start 09/26/18 at 22:30 Dextrose (Dextrose 50%-Water Syringe) 12.5 gm PRN Q15MIN PRN IV SEE COMMENTS; Start 09/26/18 at 22:30 Cefazolin Sodium/ Dextrose 50 ml @ 100 mls/hr Q6H IV Last administered on 09/27/18 12:21; Start 09/26/18 at 23:00; Stop 09/27/18 at 11:29; Status DC Warfarin Sodium (Coumadin) 2.5 mg 1X WARF ONCE PO Last administered on 09/27/18 18:28; Start 09/27/18 at 16:00; Stop 09/27/18 at 16:01; Status DC Polyethylene Glycol (miraLAX PACKET) 17 gm BID PO Last administered on 09/30/18 09:29; Start 09/28/18 at 13:00 Aspirin (Ecotrin) 81 mg DAILY PO Last administered on 09/30/18 09:32; Start 09/28/18 at 13:00 Atorvastatin Calcium (Lipitor) 10 mg DAILY PO ; Start 09/28/18 at 13:00; Stop 09/28/18 at 16:26; Status DC Cetirizine HCl (ZyrTEC) 10 mg DAILY PO Last administered on 09/30/18 09:31; Start 09/28/18 at 13:00 Furosemide (Lasix) 40 mg QODAY PO Last administered on 09/30/18 09:31; Start 09/28/18 at 13:00 Levothyroxine Sodium (Synthroid) 112 mcg DAILY06 PO Last administered on 09/30/18 06:28; Start 09/28/18 at 13:00 Potassium Chloride (Klor-Con) 10 meq QODAY PO Last administered on 09/30/18 09:32; Start 09/28/18 at 13:00 Trazodone HCl (Desyrel) 100 mg HS PO Last administered on 09/29/18 21:44; Start 09/28/18 at 21:00 Montelukast Sodium (Singulair) 10 mg QHS PO Last administered on 09/29/18 21:44; Start 09/28/18 at 21:00 Fish Oil (Fish Oil) 1,000 mg DAILY PO Last administered on 09/30/18 09:31; Start 09/28/18 at 13:00 Magnesium Hydroxide (Milk Of Magnesia) 2,400 mg PRN DAILY PRN PO CONSTIPATION; Start 09/28/18 at 12:30 Warfarin Sodium (Coumadin) 1 mg 1X WARF ONCE PO Last administered on 09/28/18at 17:31; Start 09/28/18 at 16:00; Stop 09/28/18 at 16:01; Status DC Dicyclomine HCl (Bentyl) 20 mg BID PO Last administered on 09/30/18 09:32; Start 09/28/18 at 21:00 Pantoprazole Sodium (Protonix) 40 mg DAILYAC PO Last administered on 09/30/18 06:28; Start 09/28/18 at 17:00 Atorvastatin Calcium (Lipitor) 10 mg QHS PO Last administered on 09/29/18 21:43; Start 09/28/18 at 21:00 Nystatin (Nystop) 1 jailyn BID TP Last administered on 09/30/18 09:33; Start 09/28/18 at 21:00 Warfarin Sodium (Coumadin) 2.5 mg 1X WARF ONCE PO Last administered on 09/29/18 18:15; Start 09/29/18 at 16:00; Stop 09/29/18 at 16:01; Status DC Active Scripts Active Reported Protonix (Pantoprazole Sodium) 20 Mg Tablet. 40 Mg PO DAILY Cetirizine Hcl 10 Mg Tablet 10 Mg PO DAILY Levothyroxine Sodium 112 Mcg Tablet 1 Tab PO DAILY Singulair Tablet (Montelukast Sodium) 10 Mg Tablet 10 Mg PO HS Furosemide 40 Mg Tablet 1 Tab PO QODAY Potassium Chloride 10 Meq Tab.sr.24h 10 Meq PO QODAY Warfarin Sodium 5 Mg Tablet 5 Mg PO DAILY Warfarin Sodium 2.5 Mg Tablet 2.5 Mg PO DAILY Machias 3 Fish Oil Softgel (Machias-3 Fatty Acids/Fish Oil) 1 Each Capsule. 1 Each PO DAILY Aspirin Ec (Aspirin) 81 Mg Tablet. 1 Tab PO DAILY Atorvastatin Calcium 10 Mg Tablet 1 Tab PO QHS Trazodone Hcl 100 Mg Tablet 100 Mg PO HS Dicyclomine Hcl 20 Mg Tablet 1 Tab PO BID Vitals/I & O Vital Sign - Last 24 Hours 09/29/18 09/29/18 09/29/18 09/29/18 14:29 15:00 15:29 19:00 Temp 98.1 97.4 98.1 97.4 Pulse 80 68 Resp 16 18 16 18 B/P (MAP) 119/43 (68) 136/38 (70) Pulse Ox 95 100 O2 Delivery Room Air Room Air Room Air 09/29/18 09/29/18 09/29/18 09/29/18 19:52 20:00 21:00 21:30 Resp 20 Pulse Ox 96 96 94 O2 Delivery Room Air Room Air Room Air O2 Flow Rate 2.0 2.0 09/29/18 09/30/18 09/30/18 09/30/18 22:59 03:00 06:44 07:00 Temp 98.0 99.2 97.8 98.0 99.2 97.8 Pulse 72 66 94 Resp 18 16 B/P (MAP) 135/51 (79) 136/39 (71) 151/35 (73) Pulse Ox 94 100 100 95 O2 Delivery Room Air Room Air Room Air Room Air 09/30/18 09/30/18 09/30/18 09/30/18 07:02 07:45 09:31 10:42 Pulse Ox 96 O2 Delivery Room Air Room Air Room Air Room Air 09/30/18 11:10 Pulse Ox 96 O2 Delivery Room Air Intake and Output 09/29/18 09/29/18 09/30/18 14:59 22:59 06:59 Intake Total 190 ml 100 ml 120 ml Balance 190 ml 100 ml 120 ml NATALIE KEATING III DO Sep 30, 2018 11:16
--- NOTE | 2018-09-30 11:36 | NUR ---
SW following for discharge planning. Discussed with RN. SW met with pt and pt's son to discuss discharge planning. PT/OT recommending acute rehab, pt agreeable and would like referral sent to [facility]. If pt's insurance doesn't approve acute rehab, pt would like referral sent to [facility]. SW awaiting recent OT note to be able to send referral.
--- NOTE | 2018-09-30 11:42 | NUR ---
Pharmacy Warfarin Dosing Note S: Pharmacy consulted to assist with anticoagulation therapy O: PEDRITO MARTINEZ is a 68 year old F with h/o DVT LABS: Last INR: 2.3 Last HGB: 8.7 Last HCT: 25.5 Last PLT: 168 Last dose of 2.5 mg given on 09/29/18 at 1600 A:INR of 2.3 is within desired range. Target range for this patient is: 2 - 3 P: Warfarin dose: 2.5 mg Today at 1600 Bridge Therapy: None Next INR due 10/01/18 Pharmacy anticoagulation service will continue to follow. CONSTANZA BEGUM [facility], 09/30/18 [id number]
[2018-09-30 15:00] VITALS: BP 129/45
--- NOTE | 2018-09-30 15:11 | NUR ---
SW following. Pt has been accepted at [facility] rehab, pending insurance auth. RN notified.
[2018-09-30] MEDS ORDERED: WARFARIN 2.5 MG TABLET. PO ONE (16:00)
[2018-09-30 19:00] VITALS: BP_SYST 125; BP_SYST 151; BP_DIAS 39; BP_DIAS 47
[2018-09-30] MEDS: ATORVASTATIN CALCIUM 10 MG TABLET. PO SCH (22:38)
[2018-09-30] MEDS: traZODone 100 MG TABLET. PO SCH (22:39)
[2018-09-30] MEDS: MONTELUKAST SODIUM 10 MG TABLET. PO SCH (22:40)
[2018-09-30] MEDS: tiZANidine 4 MG TABLET. PO PRN (22:40)
[2018-09-30] MEDS: rOPINIRole 0.25 MG TABLET. PO SCH (22:40)
[2018-09-30 23:00] VITALS: BP 151/39
[2018-10-01 03:00] VITALS: BP 103/65
[2018-10-01] MEDS: PANTOPRAZOLE 40 MG TABLET.DR. PO SCH (05:57)
[2018-10-01] MEDS: LEVOTHYROXINE 112 MCG TABLET PO SCH (05:57)
[2018-10-01] MEDS: HYDROcodone/APAP 7.5/325MG 1 TAB TABLET PO PRN (05:58)
[2018-10-01 07:00] VITALS: BP 114/29
[2018-10-01] MEDS: IPRATRPIUM/ALBUTEROL 0.5/2.5MG 3 ML NEBU. NEB SCH ×4 (07:06→20:47)
[2018-10-01] MEDS: BUDESONIDE 0.5 MG/2 ML NEBU. NEB SCH ×2 (07:06→20:49)
[2018-10-01 07:17] LABS: PROTHROMBIN TIME PATIENT 25.2 SEC (11.7-14.0)
[2018-10-01] MEDS: POLYETHYLENE GLYCOL 3350 17 GM PACKET. PO SCH ×3 (09:00→21:06)
[2018-10-01] MEDS: CETIRIZINE HCL 10 MG TABLET. PO SCH (09:06)
[2018-10-01] MEDS: ASPIRIN ENTERIC COATED 81 MG TABLET.DR. PO SCH (09:06)
[2018-10-01] MEDS: SENNOSIDES/DOCUSATE 8.6/50MG TABLET. PO SCH (09:06)
[2018-10-01] MEDS: NYSTATIN TOPICAL POWDER 15GM BOTTLE. TP SCH ×2 (09:06→21:09)
[2018-10-01] MEDS: DICYCLOMINE HCL 10 MG CAPSULE PO SCH ×2 (09:06→21:07)
[2018-10-01] MEDS: rOPINIRole 0.25 MG TABLET. PO SCH ×3 (09:06→21:07)
[2018-10-01] MEDS: OMEGA-3 FATTY ACIDS/FISH OIL 1,000 MG CAPSULE. PO SCH (09:06)
[2018-10-01 11:00] VITALS: BP 111/25
--- NOTE | 2018-10-01 12:06 | PDOC ---
[employer] PROGRESS NOTE Chief Complaint Chief Complaint Day #4 s/p ORIF with locking plate screw and cable fixation periprosthetic left distal femur fracture. Left leg fracture - comminuted. Pain control. postop CAD s/p CABG 2006 - cont home meds. Had recent stress test that was negative. CAS on CPAP - will bring home CPAP COPD - cont on nebulizers HLD - cont statin HTN - cont meds after surgery DVT on warfarin - FFP was given to reverse INR, will place back on post op History of Present Illness History of Present Illness 6�18�2019 Patient seen and examined I discussed discharge plans with case management Awaiting [place] approval for [facility] rehabilitation or [facility] 6�17�2019 Patient seen and examined with case management Replanning to get her to [facility] rehabilitation hopefully Patient resting with no apparent distress Has a son present who is in the chair snoring Discussed with RN Reviewed chart Vitals Vitals Vital Signs Date Time Temp Pulse Resp B/P (MAP) Pulse Ox O2 Delivery O2 Flow Rate FiO2 10/01/18 11:13 97 Room Air 10/01/18 07:11 16 10/01/18 07:00 97.8 63 114/29 (57) 97.8 Physical Exam General: Alert, Other (resting with no apparent distress) Heart: Regular rate, Normal S1, Normal S2 Lungs: Clear Abdomen: Normal bowel sounds, Soft Extremities: No clubbing Skin: No rashes, No breakdown Labs Labs: Laboratory Tests Test 10/01/18 04:57 Prothrombin Time 25.2 SEC (11.7-14.0) Prothromb Time International Ratio 2.3 (0.8-1.1) Assessment and Plan Assessmemt and Plan Problems Medical Problems: (1) Anticoagulated on Coumadin Status: Acute (2) 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 Left leg fracture - comminuted. Pain control. postop CAD s/p CABG 2006 - cont home meds. Had recent stress test that was negative. CAS on CPAP - will bring home CPAP COPD - cont on nebulizers HLD - cont statin HTN - cont meds after surgery DVT on warfarin - FFP was given to reverse INR, will place back on post op Plan Discharge disposition pending per case management to arrange with her insurance carrier [employer] For now wound care PT OT Home meds DVT prophylaxis Full code Comment Review of Relevant I have reviewed the following items sol (where applicable) has been applied. Labs Laboratory Tests Test 09/30/18 05:45 10/01/18 04:57 Prothrombin Time 25.0 SEC (11.7-14.0) 25.2 SEC (11.7-14.0) Prothromb Time International Ratio 2.3 (0.8-1.1) 2.3 (0.8-1.1) Laboratory Tests Test 10/01/18 04:57 Prothrombin Time 25.2 SEC (11.7-14.0) Prothromb Time International Ratio 2.3 (0.8-1.1) Medications Current Medications Morphine Sulfate (Morphine Sulfate) 4 mg 1X ONCE IV Last administered on 09/26/18at 10:03; Start 09/26/18 at 10:00; Stop 09/26/18 at 10:01; Status DC Sodium Chloride 1,000 ml @ 100 mls/hr Q10H IV Last administered on 09/26/18at 10:18; Start 09/26/18 at 09:52; Stop 09/26/18 at 19:51; Status DC Hydromorphone HCl (Dilaudid) 1 mg 1X ONCE IV Last administered on 09/26/18at 10:49; Start 09/26/18 at 10:45; Stop 09/26/18 at 10:46; Status DC Hydromorphone HCl (Dilaudid) 2 mg STK-MED ONCE .ROUTE ; Start 09/26/18 at 10:33; Stop 09/26/18 at 10:34; Status DC Ondansetron HCl (Zofran) 4 mg PRN Q6HRS PRN IV NAUSEA/VOMITING; Start 09/26/18 at 11:45; Stop 09/27/18 at 11:44; Status DC Fentanyl Citrate (Fentanyl 2ml Vial) 25 mcg PRN Q5MIN PRN IV MILD PAIN 1-3 Last administered on 09/26/18at 15:31; Start 09/26/18 at 11:45; Stop 09/27/18 at 11:44; Status DC Fentanyl Citrate (Fentanyl 2ml Vial) 50 mcg PRN Q5MIN PRN IV MODERATE TO SEVERE PAIN; Start 09/26/18 at 11:45; Stop 09/27/18 at 11:44; Status DC Morphine Sulfate (Morphine Sulfate) 1 mg PRN Q10MIN PRN IV SEVERE PAIN 7-10; Start 09/26/18 at 11:45; Stop 09/27/18 at 11:44; Status DC Ringer's Solution 1,000 ml @ 30 mls/hr Q24H IV Last administered on 09/26/18at 19:51; Start 09/26/18 at 11:39; Stop 09/26/18 at 23:38; Status DC Hydromorphone HCl (Dilaudid) 0.5 mg PRN Q10MIN PRN IV SEV PAIN, Second choice; Start 09/26/18 at 11:45; Stop 09/27/18 at 11:44; Status DC Prochlorperazine Edisylate (Compazine) 5 mg PACU PRN PRN IV NAUSEA, MRX1 Last administered on 09/26/18at 18:28; Start 09/26/18 at 11:45; Stop 09/27/18 at 11:44; Status DC Fentanyl Citrate (Fentanyl 2ml Vial) 50 mcg 1X ONCE IM ; Start 09/26/18 at 14:15; Stop 09/26/18 at 14:51; Status DC Albuterol/ Ipratropium (Duoneb) 3 ml RTQID NEB Last administered on 10/01/18at 11:13; Start 09/26/18 at 16:00 Budesonide (Pulmicort) 0.5 mg RTBID NEB Last administered on 10/01/18at 07:06; Start 09/26/18 at 20:00 Fentanyl Citrate (Fentanyl 2ml Vial) 50 mcg 1X ONCE IV Last administered on 09/26/18at 14:40; Start 09/26/18 at 14:45; Stop 09/26/18 at 14:52; Status DC Propofol 20 ml @ As Directed STK-MED ONCE IV ; Start 09/26/18 at 14:58; Stop 09/26/18 at 14:59; Status DC Lidocaine HCl (Lidocaine Pf 2% Vial) 5 ml STK-MED ONCE .ROUTE ; Start 09/26/18 at 14:58; Stop 09/26/18 at 14:59; Status DC Rocuronium Sanderson (Zemuron) 50 mg STK-MED ONCE .ROUTE ; Start 09/26/18 at 14:59; Stop 09/26/18 at 15:00; Status DC Fentanyl Citrate (Fentanyl 2ml Vial) 100 mcg STK-MED ONCE .ROUTE ; Start 09/26/18 at 15:14; Stop 09/26/18 at 15:15; Status DC Cefazolin Sodium 100 ml @ As Directed STK-MED ONCE IV ; Start 09/26/18 at 15:46; Stop 09/26/18 at 15:47; Status DC Fentanyl Citrate (Fentanyl 2ml Vial) 100 mcg STK-MED ONCE .ROUTE ; Start 09/26/18 at 15:51; Stop 09/26/18 at 15:52; Status DC Dexamethasone Sodium Phosphate (Decadron) 4 mg STK-MED ONCE .ROUTE ; Start 09/26/18 at 16:02; Stop 09/26/18 at 16:03; Status DC Sevoflurane (Ultane) 90 ml STK-MED ONCE IH ; Start 09/26/18 at 16:02; Stop 09/26/18 at 16:03; Status DC Ondansetron HCl (Zofran) 4 mg STK-MED ONCE .ROUTE ; Start 09/26/18 at 16:23; Stop 09/26/18 at 16:24; Status DC Desflurane (Suprane) 90 ml STK-MED ONCE IH ; Start 09/26/18 at 16:23; Stop 09/26/18 at 16:24; Status DC Phenylephrine HCl (PHENYLEPHRINE in 0.9% NACL PF) 1 mg STK-MED ONCE IV ; Start 09/26/18 at 17:47; Stop 09/26/18 at 17:48; Status DC Bupivacaine HCl (Sensorcaine Mpf 0.5%) 30 ml STK-MED ONCE .ROUTE ; Start 09/26/18 at 18:20; Stop 09/26/18 at 18:21; Status DC Prochlorperazine Edisylate (Compazine) 10 mg STK-MED ONCE .ROUTE ; Start 09/26/18 at 18:26; Stop 09/26/18 at 18:27; Status DC Cefazolin Sodium 50 ml @ 100 mls/hr 1X STAT IV ; Start 09/26/18 at 20:29; Stop 09/26/18 at 20:58; Status UNV Cefazolin Sodium 50 ml @ 100 mls/hr 1X ONCE IV Last administered on 09/26/18at 15:51; Start 09/26/18 at 15:49; Stop 09/26/18 at 21:09; Status DC Cefazolin Sodium 50 ml @ 100 mls/hr 1X STAT IV Last administered on 09/26/18at 15:51; Start 09/26/18 at 15:50; Stop 09/26/18 at 20:49; Status DC Oxycodone HCl (Roxicodone) 5 mg PRN Q3HRS PRN PO PAIN SEVERE Last administered on 09/28/18at 17:32; Start 09/26/18 at 22:30 Morphine Sulfate (Morphine Sulfate) 2 mg PRN Q1HR PRN IV PAIN MILD; Start 09/26/18 at 22:30 Fentanyl Citrate (Fentanyl 2ml Vial) 25 mcg PRN Q1HR PRN IV PAIN SEVERE; Start 09/26/18 at 22:30 Senna/Docusate Sodium (Senna Plus) 1 tab DAILY PO Last administered on 10/01/18at 09:06; Start 09/27/18 at 09:00 Polyethylene Glycol (miraLAX PACKET) 17 gm PRN DAILY PRN PO CONSTIPATION; Start 09/26/18 at 22:30; Stop 09/28/18 at 12:18; Status DC Ondansetron HCl (Zofran) 4 mg PRN Q4HRS PRN IV NAUSEA/VOMITING; Start 09/26/18 at 22:30 Warfarin Sodium (Coumadin Per Pharmacy) 1 each PRN DAILY PRN MC SEE COMMENTS Last administered on 09/30/18at 11:41; Start 09/27/18 at 22:30 Magnesium Hydroxide (Milk Of Magnesia) 2,400 mg 1X PRN PRN PO CONSTIPATION; Start 09/27/18 at 06:00; Stop 09/28/18 at 05:59; Status DC Bisacodyl (Dulcolax Supp) 10 mg 1X PRN PRN [place] CONSTIPATION; Start 09/27/18 at 16:00; Stop 09/28/18 at 15:59; Status DC Acetaminophen/ Hydrocodone Bitart (Lortab 7.5/325) 1 tab PRN Q4HRS PRN PO PAIN MILD; Start 09/26/18 at 22:30 Morphine Sulfate (Morphine Sulfate) 4 mg PRN Q2HR PRN IV PAIN MODERATE Last administered on 09/30/18 22:47; Start 09/26/18 at 22:30 Acetaminophen/ Hydrocodone Bitart (Lortab 7.5/325) 2 tab PRN Q4HRS PRN PO PAIN MODERATE Last administered on 10/01/18 05:58; Start 09/26/18 at 22:30 Dextrose (Dextrose 50%-Water Syringe) 12.5 gm PRN Q15MIN PRN IV SEE COMMENTS; Start 09/26/18 at 22:30 Cefazolin Sodium/ Dextrose 50 ml @ 100 mls/hr Q6H IV Last administered on 09/27/18 12:21; Start 09/26/18 at 23:00; Stop 09/27/18 at 11:29; Status DC Warfarin Sodium (Coumadin) 2.5 mg 1X WARF ONCE PO Last administered on 09/27/18 18:28; Start 09/27/18 at 16:00; Stop 09/27/18 at 16:01; Status DC Polyethylene Glycol (miraLAX PACKET) 17 gm BID PO Last administered on 09/30/18 09:29; Start 09/28/18 at 13:00 Aspirin (Ecotrin) 81 mg DAILY PO Last administered on 10/01/18 09:06; Start 09/28/18 at 13:00 Atorvastatin Calcium (Lipitor) 10 mg DAILY PO ; Start 09/28/18 at 13:00; Stop 09/28/18 at 16:26; Status DC Cetirizine HCl (ZyrTEC) 10 mg DAILY PO Last administered on 10/01/18 09:06; Start 09/28/18 at 13:00 Furosemide (Lasix) 40 mg QODAY PO Last administered on 09/30/18 09:31; Start 09/28/18 at 13:00 Levothyroxine Sodium (Synthroid) 112 mcg DAILY06 PO Last administered on 10/01/18 05:57; Start 09/28/18 at 13:00 Potassium Chloride (Klor-Con) 10 meq QODAY PO Last administered on 09/30/18 09:32; Start 09/28/18 at 13:00 Trazodone HCl (Desyrel) 100 mg HS PO Last administered on 09/30/18 22:39; Start 09/28/18 at 21:00 Montelukast Sodium (Singulair) 10 mg QHS PO Last administered on 09/30/18 22:40; Start 09/28/18 at 21:00 Fish Oil (Fish Oil) 1,000 mg DAILY PO Last administered on 10/01/18at 09:06; Start 09/28/18 at 13:00 Magnesium Hydroxide (Milk Of Magnesia) 2,400 mg PRN DAILY PRN PO CONSTIPATION; Start 09/28/18 at 12:30 Warfarin Sodium (Coumadin) 1 mg 1X WARF ONCE PO Last administered on 09/28/18 17:31; Start 09/28/18 at 16:00; Stop 09/28/18 at 16:01; Status DC Dicyclomine HCl (Bentyl) 20 mg BID PO Last administered on 10/01/18 09:06; St art 09/28/18 at 21:00 Pantoprazole Sodium (Protonix) 40 mg DAILYAC PO Last administered on 10/01/18 05:57; Start 09/28/18 at 17:00 Atorvastatin Calcium (Lipitor) 10 mg QHS PO Last administered on 09/30/18 22:38; Start 09/28/18 at 21:00 Nystatin (Nystop) 1 jailyn BID TP Last administered on 10/01/18 09:06; Start 09/28/18 at 21:00 Warfarin Sodium (Coumadin) 2.5 mg 1X WARF ONCE PO Last administered on 09/29/18 18:15; Start 09/29/18 at 16:00; Stop 09/29/18 at 16:01; Status DC Warfarin Sodium (Coumadin) 2.5 mg 1X WARF ONCE PO Last administered on 09/30/18at 16:37; Start 09/30/18 at 16:00; Stop 09/30/18 at 16:01; Status DC Tizanidine HCl (Zanaflex) 4 mg PRN Q8HRS PRN PO MUSCLE SPASMS Last administered on 09/30/18 22:40; Start 09/30/18 at 20:30 Ropinirole HCl (Requip) 0.25 mg TID PO Last administered on 10/01/18 09:06; Start 09/30/18 at 21:00 Active Scripts Active Reported Protonix (Pantoprazole Sodium) 20 Mg Tablet.dr 40 Mg PO DAILY Cetirizine Hcl 10 Mg Tablet 10 Mg PO DAILY Levothyroxine Sodium 112 Mcg Tablet 1 Tab PO DAILY Singulair Tablet (Montelukast Sodium) 10 Mg Tablet 10 Mg PO HS Furosemide 40 Mg Tablet 1 Tab PO QODAY Potassium Chloride 10 Meq Tab.sr.24h 10 Meq PO QODAY Warfarin Sodium 5 Mg Tablet 5 Mg PO DAILY Warfarin Sodium 2.5 Mg Tablet 2.5 Mg PO DAILY [place] 3 Fish Oil Softgel ([place]-3 Fatty Acids/Fish Oil) 1 Each Capsule. 1 Each PO DAILY Aspirin Ec (Aspirin) 81 Mg Tablet. 1 Tab PO DAILY Atorvastatin Calcium 10 Mg Tablet 1 Tab PO QHS Trazodone Hcl 100 Mg Tablet 100 Mg PO HS Dicyclomine Hcl 20 Mg Tablet 1 Tab PO BID Vitals/I & O Vital Sign - Last 24 Hours 09/30/18 09/30/18 09/30/18 09/30/18 15:00 15:01 16:38 19:00 Temp 97.7 98.9 97.7 98.9 Pulse 69 71 Resp 16 18 B/P (MAP) 129/45 (73) 125/47 (73) Pulse Ox 95 98 O2 Delivery Room Air Room Air Room Air Room Air 09/30/18 09/30/18 09/30/18 09/30/18 19:59 20:00 22:39 22:47 Resp 20 20 Pulse Ox 97 O2 Delivery Room Air Room Air Room Air Room Air 09/30/18 09/30/18 10/01/18 10/01/18 23:00 23:39 03:00 05:58 Temp 98.8 98.1 98.8 98.1 Pulse 76 81 Resp 18 18 16 16 B/P (MAP) 151/39 (76) 103/65 (78) Pulse Ox 98 92 O2 Delivery Room Air Room Air Room Air BiPAP/CPAP 10/01/18 10/01/18 10/01/18 10/01/18 07:00 07:07 07:11 11:13 Temp 97.8 97.8 Pulse 63 Resp 18 16 B/P (MAP) 114/29 (57) Pulse Ox 95 97 97 O2 Delivery Room Air Room Air Room Air Room Air Intake and Output 09/30/18 09/30/18 10/01/18 14:59 22:59 06:59 Output Total 1 ml 800 ml 400 ml Balance -1 ml -800 ml -400 ml NATALIE KEATING III DO Oct 01, 2018 12:06
--- NOTE | 2018-10-01 12:53 | NUR ---
SW following. Discussed with RN, ALVARO awaiting insurance auth for [facility]. If insurance denied acute rehab stay, pt would like [facility] - [facility] has accepted, awaiting acute rehab denial before pt would be able to go to [facility]. ALVARO will continue to follow.
--- NOTE | 2018-10-01 13:33 | NUR ---
Pharmacy Warfarin Dosing Note S: Pharmacy consulted to assist with anticoagulation therapy O: PEDRITO MARTINEZ is a 68 year old F with h/o DVT LABS: Last INR: 2.3 Last HGB: 8.7 Last HCT: 25.5 Last PLT: 168 Last dose of 2.5 mg given on 09/30/18 at 1600 Vitamin K given: no (FFP on admission) Ongoing Drug Interactions: ASA, Synthroid A:INR of 2.3 is within desired range. Target range for this patient is: 2 - 3. Resume home dosing. Change INR draws to every Sunday and due to INR stability. P: Warfarin dose: 2.5 mg Today at 1600 Bridge Therapy: None Next INR due , 10/03/18 Pharmacy anticoagulation service will continue to follow. CONSTANZA BEGUM FOR[facility]LY [facility], 10/01/18 [id number]
[2018-10-01 15:00] VITALS: BP 117/27
[2018-10-01] MEDS: MORPHINE SULFATE 4 MG/ML VIAL. IV PRN (15:09)
[2018-10-01] MEDS ORDERED: WARFARIN 2.5 MG TABLET. PO SCH (16:00)
[2018-10-01 19:30] VITALS: BP 124/33
[2018-10-01] MEDS: ATORVASTATIN CALCIUM 10 MG TABLET. PO SCH (21:06)
[2018-10-01] MEDS: MONTELUKAST SODIUM 10 MG TABLET. PO SCH (21:07)
[2018-10-01] MEDS: traZODone 100 MG TABLET. PO SCH (21:07)
[2018-10-01] MEDS: tiZANidine 4 MG TABLET. PO PRN (21:08)
[2018-10-01 23:25] VITALS: BP 133/48
[2018-10-02 03:37] VITALS: BP 135/61
[2018-10-02] MEDS: PANTOPRAZOLE 40 MG TABLET.DR. PO SCH (06:03)
[2018-10-02] MEDS: tiZANidine 4 MG TABLET. PO PRN (06:03)
[2018-10-02] MEDS: LEVOTHYROXINE 112 MCG TABLET PO SCH (06:03)
[2018-10-02 07:00] VITALS: BP 123/31
[2018-10-02] MEDS: IPRATRPIUM/ALBUTEROL 0.5/2.5MG 3 ML NEBU. NEB SCH ×2 (07:40→12:45)
[2018-10-02] MEDS: BUDESONIDE 0.5 MG/2 ML NEBU. NEB SCH (07:40)
[2018-10-02] MEDS: POLYETHYLENE GLYCOL 3350 17 GM PACKET. PO SCH (09:01)
[2018-10-02] MEDS: OMEGA-3 FATTY ACIDS/FISH OIL 1,000 MG CAPSULE. PO SCH (09:02)
[2018-10-02] MEDS: DICYCLOMINE HCL 10 MG CAPSULE PO SCH (09:02)
[2018-10-02] MEDS: ASPIRIN ENTERIC COATED 81 MG TABLET.DR. PO SCH (09:02)
[2018-10-02] MEDS: SENNOSIDES/DOCUSATE 8.6/50MG TABLET. PO SCH (09:02)
[2018-10-02] MEDS: FUROSEMIDE 40 MG TABLET. PO SCH (09:02)
[2018-10-02] MEDS: POTASSIUM CHLORIDE 10 MEQ TABLET.ER. PO SCH (09:03)
[2018-10-02] MEDS: CETIRIZINE HCL 10 MG TABLET. PO SCH (09:03)
[2018-10-02] MEDS: rOPINIRole 0.25 MG TABLET. PO SCH (09:03)
[2018-10-02] MEDS: NYSTATIN TOPICAL POWDER 15GM BOTTLE. TP SCH (09:04)
[2018-10-02 11:00] VITALS: BP 132/29
--- NOTE | 2018-10-02 12:44 | SNU/HH DC ---
DISCHARGE ORDERS DISCHARGE INFORMATION: DISCHARGE DATE: Oct 02, 2018 FINAL DIAGNOSIS Problems Medical Problems: (1) Anticoagulated on Coumadin Status: Acute (2) Comminuted fracture Status: Acute (3) Periprosthetic fracture around internal prosthetic knee joint Status: Acute CONDITION ON DISCHARGE: Stable CODE STATUS: Code Status: Full ASSISTED: SNF STAY <30 DAYS: Yes HOSPICE: HOSPICE: No HOSPICE EVAL & TREAT: No LTAC: ADMIT TO LTAC: No POST DISCHARGE ORDERS: ACTIVITY ORDERS: Bedrest today DIET AFTER DISCHARGE: Regular TREATMENT/EQUIPMENT ORDERS: Physical Therapy For: Evalulation/Treatment Occupational Therapy For: Evaluation/Treatment DISCHARGE MEDICATIONS: Home Meds Reported Medications Pantoprazole Sodium (PROTONIX) 20 Mg Tablet.dr, 40 MG PO DAILY for , TAB 09/26/18 Cetirizine Hcl (CETIRIZINE HCL) 10 Mg Tablet, 10 MG PO DAILY for allergies, TAB 09/26/18 Levothyroxine Sodium (LEVOTHYROXINE SODIUM) 112 Mcg Tablet, 1 TAB PO DAILY for tonsillectomy , #30 TAB 5 Refills 09/26/18 Montelukast Sodium (SINGULAIR TABLET ) 10 Mg Tablet, 10 MG PO HS for allergies, #30 TAB 0 Refills 09/26/18 Furosemide (FUROSEMIDE) 40 Mg Tablet, 1 TAB PO QODAY for water pill, #30 TAB 5 Refills 09/26/18 Potassium Chloride (POTASSIUM CHLORIDE) 10 Meq Tab.sr.24h, 10 MEQ PO QODAY for given with furosemide, TAB.SR 09/26/18 Warfarin Sodium (WARFARIN SODIUM) 2.5 Mg Tablet, 2.5 MG PO DAILY for anticoagulant, TAB 09/26/18 [place]-3 Fatty Acids/Fish Oil (OMEGA 3 FISH OIL SOFTGEL) 1 Each Capsule.dr, 1 EACH PO DAILY for high cholesterol , CAP 09/26/18 Aspirin (ASPIRIN EC) 81 Mg Tablet.dr, 1 TAB PO DAILY for preventative, #30 TAB 3 Refills 09/26/18 Atorvastatin Calcium (ATORVASTATIN CALCIUM) 10 Mg Tablet, 1 TAB PO QHS for high cholesterol 09/26/18 Trazodone Hcl (TRAZODONE HCL) 100 Mg Tablet, 100 MG PO HS for for sleep , TAB 09/26/18 Dicyclomine Hcl (DICYCLOMINE HCL) 20 Mg Tablet, 1 TAB PO BID for IBS, #60 TAB 11 Refills 09/26/18 Discontinued Reported Medications Warfarin Sodium (WARFARIN SODIUM) 5 Mg Tablet, 5 MG PO DAILY for anticoagulant, #30 TAB 09/26/18 NATALIE KEATING III DO Oct 02, 2018 12:44
--- NOTE | 2018-10-02 13:00 | NUR ---
Discharge instructions and belongings reviewed with patient, verbalized understanding. Report called and given to RN @[facility]. ext#[phone]
--- NOTE | 2018-10-02 13:00 | DS ---
DATE OF DISCHARGE: 10/02/2018 ADMISSION DIAGNOSIS: Fall with left distal femur fracture. DISCHARGE DIAGNOSIS: Postop open reduction and internal fixation. CONSULTS: Dr. Jorgensen. PROCEDURE: Open reduction and internal fixation. HOSPITAL COURSE: The patient is a pleasant middle-aged female who fell and suffered a distal femur fracture. She was admitted. We consulted Orthopedics. She was taken for ORIF. Today, she is doing well. I examined her. This morning, her heart tones are normal. Her lungs are clear. Abdomen was soft. Extremities, has clean, dry and intact dressing. We plan to discharge to intermediate. ACTIVITY: As tolerated. DIET: Low sodium. MEDICATIONS: Please see the MRAD. DISPOSITION: care home. TOTAL TIME: 32 minutes. NATALIE KEATING DO DR: KULWINDER/margaret JOB#: [id number] / [id number]
--- NOTE | 2018-10-02 13:09 | NUR ---
SW following. Discussed with RN, insurance denied acute rehab but approved SNU stay. Pt will discharge to [facility] today at 1330. Pt choice and rights letter signed and placed on chart. No further SW needs.
--- NOTE | 2018-10-02 13:51 | NUR ---
Patient was picked up by transport and taken over to [facility].
== END 2018-10-02 13:52 | DRG 481 ==
LOC: ER 09:45 → 4 NORTH 11:15
PROVIDERS: ADMIT Internal Medicine; ATTEND Internal Medicine
PROC: 30233K1 Transfusion of Nonautologous Frozen Plasma into Peripheral Vein, Percutaneous Approach (ICD-10-PCS; 2018-09-26)
PROC: 0QSC04Z Reposition Left Lower Femur with Internal Fixation Device, Open Approach (ICD-10-PCS; principal; 2018-09-26 15:00)
DX: S72.402A Unspecified fracture of lower end of left femur, initial encounter for closed fracture (principal); M97.12XA Periprosthetic fracture around internal prosthetic left knee joint, initial encounter; D62 Acute posthemorrhagic anemia; J44.9 Chronic obstructive pulmonary disease, unspecified; I25.10 Atherosclerotic heart disease of native coronary artery without angina pectoris; I10 Essential (primary) hypertension; E78.5 Hyperlipidemia, unspecified; E78.00 Pure hypercholesterolemia, unspecified; G47.33 Obstructive sleep apnea (adult) (pediatric); F17.210 Nicotine dependence, cigarettes, uncomplicated; W01.0XXA Fall on same level from slipping, tripping and stumbling without subsequent striking against object, initial encounter; Y93.01 Activity, walking, marching and hiking; Y92.89 Other specified places as the place of occurrence of the external cause; Y99.8 Other external cause status; Z95.1 Presence of aortocoronary bypass graft; Z79.01 Long term (current) use of anticoagulants; Z90.710 Acquired absence of both cervix and uterus; Z86.718 Personal history of other venous thrombosis and embolism; Z82.49 Family history of ischemic heart disease and other diseases of the circulatory system
CPT/HCPCS: 36415; 71045; 73560; 76000; 80048; 85014; 85018; 85025; 85610; 86850; 86900; 86901; 86927; 93005; 94640; 94760; 96374; 96375; A7015; C1713; C2617; J0690; J0696; J0780; J1100; J1170; J2001; J2270; J2370; J2405; J2704; J3010; J3490; J7030; J7120; J7620; J7626; P9017; 97110; 97530; 97535; 99285-25